=== PATIENT | male | born 1990 | race Caucasian/White ===

== ENCOUNTER 2018-10-08 07:16 | Emergency (ER) | payer SELFPAY ==
--- NOTE | 2018-10-08 08:03 | EDPHYS ---
Physician Documentation [facility] Name: Kun Head Jr Age: 28 yrs Sex: Male : 1990 Arrival Date: 10/08/2018 Time: 07:19 Bed 12 Private MD: None, None ED Physician Blair Li HPI: 10/08 07:45 This 28 yrs old Male presents to ER via Ambulatory with complaints of Flu ira Symptoms. 07:45 The patient or guardian reports cough, flu symptoms, arthralgias, low-grade fever, ira myalgias, no appetite. Onset: The symptoms/episode began/occurred 1 day(s) ago. Severity of symptoms: At their worst the symptoms were mild, in the emergency department the symptoms are unchanged. Modifying factors: The symptoms are alleviated by. The patient reports fever, that was measured at 101 degrees Fahrenheit. Modifying factors: there are no obvious modifying factors. Associated signs and symptoms: Pertinent positives: chills, cough, myalgias. Severity of symptoms: At their worst the symptoms were mild in the emergency department the symptoms are unchanged. Historical: - Allergies: 07:22 No Known Allergies; sv - PMHx: 07:22 None; sv - PSHx: 07:22 RIGHT knee; sv - Immunization history:: Adult Immunizations up to date. - Social history:: Smoking status: Patient/guardian denies using tobacco. - Ebola Screening: : No symptoms or risks identified at this time. - Family history:: not pertinent. ROS: 07:45 Constitutional: Negative for fever, chills, and weight loss, Eyes: Negative for injury, ira pain, redness, and discharge, ENT: Negative for injury, pain, and discharge, Neck: Negative for injury, pain, and swelling, Cardiovascular: Negative for chest pain, palpitations, and edema, Abdomen/GI: Negative for abdominal pain, nausea, vomiting, diarrhea, and constipation, Back: Negative for injury and pain, : Negative for injury, bleeding, discharge, and swelling, MS/Extremity: Negative for injury and deformity, Skin: Negative for injury, rash, and discoloration, Neuro: Negative for headache, weakness, numbness, tingling, and seizure, Psych: Negative for depression, anxiety, suicide ideation, homicidal ideation, and hallucinations, Allergy/Immunology: Negative for hives, rash, and allergies, Endocrine: Negative for neck swelling, polydipsia, polyuria, polyphagia, and marked weight changes, Hematologic/Lymphatic: Negative for swollen nodes, abnormal bleeding, and unusual bruising. 07:45 Respiratory: Positive for cough, with no reported sputum. Exam: 07:45 Constitutional: This is a well developed, well nourished patient who is awake, alert, ira and in no acute distress. Head/Face: Normocephalic, atraumatic. Eyes: Pupils equal round and reactive to light, extra-ocular motions intact. Lids and lashes normal. Conjunctiva and sclera are non-icteric and not injected. Cornea within normal limits. Periorbital areas with no swelling, redness, or edema. ENT: Nares patent. No nasal discharge, no septal abnormalities noted. Tympanic membranes are normal and external auditory canals are clear. Oropharynx with no redness, swelling, or masses, exudates, or evidence of obstruction, uvula midline. Mucous membranes moist. Neck: Trachea midline, no thyromegaly or masses palpated, and no cervical lymphadenopathy. Supple, full range of motion without nuchal rigidity, or vertebral point tenderness. No Meningismus. Chest/axilla: Normal chest wall appearance and motion. Nontender with no deformity. No lesions are appreciated. Cardiovascular: Regular rate and rhythm with a normal S1 and S2. No gallops, murmurs, or rubs. Normal PMI, no JVD. No pulse deficits. Respiratory: Lungs have equal breath sounds bilaterally, clear to auscultation and percussion. No rales, rhonchi or wheezes noted. No increased work of breathing, no retractions or nasal flaring. Abdomen/GI: Soft, non-tender, with normal bowel sounds. No distension or tympany. No guarding or rebound. No evidence of tenderness throughout. Back: No spinal tenderness. No costovertebral tenderness. Full range of motion. Skin: Warm, dry with normal turgor. Normal color with no rashes, no lesions, and no evidence of cellulitis. MS/ Extremity: Pulses equal, no cyanosis. Neurovascular intact. Full, normal range of motion. Neuro: Awake and alert, GCS 15, oriented to person, place, time, and situation. Cranial nerves II-XII grossly intact. Motor strength 5/5 in all extremities. Sensory grossly intact. Cerebellar exam normal. Normal gait. Psych: Awake, alert, with orientation to person, place and time. Behavior, mood, and affect are within normal limits. Vital Signs: 07:22 BP 112 / 74; Pulse 76; Resp 18; Temp 98; Pulse Ox 99% ; Weight 95.25 kg; Height 6 ft. 0 sv in. (182.88 cm); Pain 6/10; 07:22 Body Mass Index 28.48 (95.25 kg, 182.88 cm) sv MDM: 07:25 Patient medically screened. [facility] 07:47 Data reviewed: vital signs, nurses notes, lab test result(s), Flu:. [facility] 10/08 07:24 Order name: Flu; Complete Time: 07:59 10/08 07:24 Order name: Strep; Complete Time: 07:59 10/08 07:44 Order name: Throat Culture EDMS Administered Medications: 08:17 Drug: Tamiflu 75 mg Route: PO; 08:17 Follow up: Response: Medication administered at discharge. Disposition: 10/08/18 08:02 Discharged to Home. Impression: Malaise and fatigue, Fever, unspecified. - Condition is Stable. - Discharge Instructions: Fever, Adult, Weakness, Weakness, [id number], Fever, Adult, [id number]. - Prescriptions for Zithromax Z- Byron 250 mg Oral Tablet - take 1 tablet by ORAL route as directed for 5 days Day 1 - take two (2) tablets one time. Day 2, 3, 4 , 5 take one (1) tablet once daily.; 6 tablet. Tamiflu 75 mg Oral Capsule - take 1 tablet by ORAL route every 12 hours for 5 days; 10 tablet. - Medication Reconciliation Form, Thank You Letter, Antibiotic Education, Prescription Opioid Use, Work release form form. - Follow up: Private Physician; When: 2 - 3 days; Reason: Recheck today's complaints, Continuance of care, Re-evaluation by your physician. - Problem is new. - Symptoms have improved. Signatures: Dispatcher [employer] Bianca Breen RN RN Blair Li MD MD cha Smirch, Shelby, RN RN ss Corrections: (The following items were deleted from the chart) 08:18 08:02 10/08/2018 08:02 Discharged to Home. Impression: Malaise and fatigue; Fever, ss unspecified. Condition is Stable. Forms are Medication Reconciliation Form, Thank You Letter, Antibiotic Education, Prescription Opioid Use. Follow up: Private Physician; When: 2 - 3 days; Reason: Recheck today's complaints, Continuance of care, Re-evaluation by your physician. Problem is new. Symptoms have improved. ira
--- NOTE | 2018-10-08 08:03 | ER ---
Nurse's Notes [facility] Name: Kun Head Jr Age: 28 yrs Sex: Male : 1990 Arrival Date: 10/08/2018 Time: 07:19 Bed 12 Private MD: None, None Diagnosis: Malaise and fatigue;Fever, unspecified Presentation: 10/08 07:21 Presenting complaint: Patient states: exposed to the flu, c/o bodyaches, malaise, sv coughing, sinus congestion started last night. Transition of care: patient was not received from another setting of care. Onset of symptoms was October 07, 2018. Care prior to arrival: None. 07:21 Method Of Arrival: Ambulatory sv 07:21 Acuity: DEBO 4 sv 07:30 Initial Sepsis Screen: Does the patient meet any 2 criteria? No. Patient's initial sv sepsis screen is negative. Does the patient have a suspected source of infection? No. Patient's initial sepsis screen is negative. 07:30 Risk Assessment: Do you want to hurt yourself or someone else? Patient reports no sv desire to harm self or others. Triage Assessment: 07:21 General: Appears in no apparent distress. uncomfortable, well developed, Behavior is sv calm, cooperative, appropriate for age. Pain: Complains of pain in "all over" Pain currently is 6 out of 10 on a pain scale. Quality of pain is described as aching, Pain began 1 day ago. Is continuous. Neuro: Level of Consciousness is awake, alert, obeys commands, Oriented to person, place, time, situation, Gait is steady, Speech is normal. Respiratory: Reports cough that is non-productive, Respiratory effort is even, unlabored, Respiratory pattern is regular, symmetrical. Derm: Skin is pink, warm \\T\\ dry. Historical: - Allergies: 07:22 No Known Allergies; sv - PMHx: 07:22 None; sv - PSHx: 07:22 RIGHT knee; sv - Immunization history:: Adult Immunizations up to date. - Social history:: Smoking status: Patient/guardian denies using tobacco. - Ebola Screening: : No symptoms or risks identified at this time. - Family history:: not pertinent. Screenin:30 Abuse screen: Denies threats or abuse. Denies injuries from another. Nutritional sv screening: No deficits noted. Tuberculosis screening: No symptoms or risk factors identified. Fall Risk None identified. Assessment: 07:30 Reassessment: Patient appears in no apparent distress at this time. No changes from previously documented assessment. Patient and/or family updated on plan of care and expected duration. Pain level reassessed. Patient is alert, oriented x 3, equal unlabored respirations, skin warm/dry/pink. Vital Signs: 07:22 BP 112 / 74; Pulse 76; Resp 18; Temp 98; Pulse Ox 99% ; Weight 95.25 kg; Height 6 ft. 0 sv in. (182.88 cm); Pain 6/10; 07:22 Body Mass Index 28.48 (95.25 kg, 182.88 cm) sv ED Course: 07:19 Patient arrived in ED. mr 07:19 None, None is Private Physician. mr 07:22 Triage completed. sv 07:24 Arm band placed on. sv 07:25 Blair Li MD is Attending Physician. [facility] 07:30 Patient has correct armband on for positive identification. Call light in reach. Door sv closed. 07:31 Awaiting lab results, Awaiting ED provider evaluation. sv 08:11 No provider procedures requiring assistance completed. Patient did not have IV access ss during this emergency room visit. Administered Medications: 08:17 Drug: Tamiflu 75 mg Route: PO; ss 08:17 Follow up: Response: Medication administered at discharge. Outcome: 08:02 Discharge ordered by . [facility] 08:17 Discharged to home ambulatory. ss 08:17 Condition: good 08:17 Discharge instructions given to patient, family, Instructed on discharge instructions, follow up and referral plans. medication usage, Demonstrated understanding of instructions, follow-up care, medications, Prescriptions given X 2. 08:18 Patient left the ED. Signatures: Bianca Cohn, RN RN Blair Li MD MD cha Rivera, Mary mr Irene Casey RN RN ss Corrections: (The following items were deleted from the chart) 07:25 07:22 Temp 98F; 95.25 kg; Height 6 ft. 0 in.; BMI: 28.4; Pain 6/10; sv sv
[2018-10-08] MEDS ORDERED: OSELTAMIVIR 75 MG CAP ONE (08:26)
== END 2018-10-08 08:18 | disposition home or self-care (01) ==
LOC: ER 07:16
DX: R50.9 Fever, unspecified (principal); R53.81 Other malaise; R53.83 Other fatigue
CPT/HCPCS: 87070; 87081; 87804; 99283

== ENCOUNTER 2019-04-12 08:28 | Emergency (ER) | payer OTHER ==
--- NOTE | 2019-04-12 08:49 | ER ---
Nurse's Notes [facility] Name: Kun Head Jr Age: 29 yrs Sex: Male : 1990 Arrival Date: 04/12/2019 Time: 08:33 Bed 13 Private MD: Diagnosis: Acute serous otitis media, left ear Presentation: 04/12 08:38 Presenting complaint: Patient states: left ear pain that began yesterday. Denies cough, aa5 denies sore throat. 08:38 Transition of care: patient was not received from another setting of care. Onset of aa5 symptoms was April 11, 2019. Risk Assessment: Do you want to hurt yourself or someone else? Patient reports no desire to harm self or others. Initial Sepsis Screen: Does the patient meet any 2 criteria? No. Patient's initial sepsis screen is negative. Does the patient have a suspected source of infection? No. Patient's initial sepsis screen is negative. Care prior to arrival: None. 08:38 Acuity: DEBO 5 aa5 08:38 Method Of Arrival: Ambulatory aa5 Historical: - Allergies: 08:38 No Known Allergies; aa5 - PMHx: 08:38 None; aa5 - PSHx: 08:38 RIGHT knee; aa5 - Immunization history:: Adult Immunizations. - Social history:: Patient/guardian denies using alcohol, street drugs, The patient lives with family, Smoking status: Patient/guardian denies using tobacco. - Ebola Screening: : No symptoms or risks identified at this time. - Family history:: not pertinent. Screenin:40 Abuse screen: Denies threats or abuse. Nutritional screening: No deficits noted. rb1 Tuberculosis screening: No symptoms or risk factors identified. Fall Risk None identified. Assessment: 08:40 General: Appears uncomfortable, Behavior is calm, appropriate for age, Denies fever. rb1 Pain: Complains of pain in left ear Pain currently is 9 out of 10 on a pain scale. Neuro: Level of Consciousness is awake, alert, obeys commands, Oriented to person, place, time, situation. Cardiovascular: Capillary refill < 3 seconds is brisk in bilateral fingers. Respiratory: Airway is patent Respiratory effort is even, unlabored, Respiratory pattern is regular, symmetrical. GI: No signs and/or symptoms were reported involving the gastrointestinal system. : No signs and/or symptoms were reported regarding the genitourinary system. EENT: Reports pain in left ear. Derm: Skin is pink, warm \T\ dry. Vital Signs: 08:39 BP 115 / 56; Pulse 72; Resp 18 S; Temp 97.9(O); Pulse Ox 97% on R/A; aa5 ED Course: 08:33 Patient arrived in ED. as 08:38 Arm band placed on Patient placed in an exam room, on a stretcher. aa5 08:40 Patient has correct armband on for positive identification. Bed in low position. Call rb1 light in reach. Side rails up X 1. Pulse ox on. NIBP on. 08:41 Deacon Bran LVN is Primary Nurse. em 08:44 Triage completed. aa5 08:45 Victor Manuel Mcpherson MD is Attending Physician. ma2 09:02 Jaimie Maynard, RN is Primary Nurse. rb1 09:02 No provider procedures requiring assistance completed. Patient did not have IV access rb1 during this emergency room visit. Administered Medications: No medications were administered Outcome: 08:48 Discharge ordered by . ma2 09:02 Discharged to home ambulatory, with significant other. rb1 09:02 Condition: stable 09:02 Discharge instructions given to patient, Instructed on discharge instructions, follow up and referral plans. medication usage, Demonstrated understanding of instructions, follow-up care, medications, Prescriptions given X 3. 09:02 Patient left the ED. [facility] Signatures: Deacon Bran LVN LVN em Martinez, Amelia as Calderon, Audri, RN RN [facility] Jaimie Maynard, ABBIE RN [facility] Victor Manuel Mcpherson MD MD [facility]
--- NOTE | 2019-04-12 08:49 | EDPHYS ---
Physician Documentation [facility] Name: Kun Head Jr Age: 29 yrs Sex: Male : 1990 Arrival Date: 04/12/2019 Time: 08:33 Bed 13 Private MD: ED Physician Victor Manuel Mcpherson HPI: 04/12 08:45 This 29 yrs old Male presents to ER via Ambulatory with complaints of Ear ma2 Pain. 08:45 The complaints affect the left ear. Onset: The symptoms/episode began/occurred ma2 gradually, 2 day(s) ago. Associated signs and symptoms: Pertinent positives: ear pain , Pertinent negatives: fever, nausea, sinus trouble, sore throat, tinnitus, vertigo, vomiting. Severity of symptoms: At their worst the symptoms were mild in the emergency department the symptoms are unchanged. The patient has not experienced similar symptoms in the past. Historical: - Allergies: 08:38 No Known Allergies; aa5 - PMHx: 08:38 None; aa5 - PSHx: 08:38 RIGHT knee; aa5 - Immunization history:: Adult Immunizations. - Social history:: Patient/guardian denies using alcohol, street drugs, The patient lives with family, Smoking status: Patient/guardian denies using tobacco. - Ebola Screening: : No symptoms or risks identified at this time. - Family history:: not pertinent. ROS: 08:45 Constitutional: Negative for fever, chills, and weight loss. ma2 08:45 All other systems are negative. Exam: 08:45 Constitutional: This is a well developed, well nourished patient who is awake, alert, ma2 and in no acute distress. ENT: left tm is red with edemetus ear cancal, right is wnl, otherwise Nares patent. No nasal discharge, no septal abnormalities noted. Oropharynx with no redness, swelling, or masses, exudates, or evidence of obstruction, uvula midline. Mucous membranes moist. Chest/axilla: Normal chest wall appearance and motion. Nontender with no deformity. No lesions are appreciated. Cardiovascular: Regular rate and rhythm with a normal S1 and S2. No gallops, murmurs, or rubs. Normal PMI, no JVD. No pulse deficits. Respiratory: Lungs have equal breath sounds bilaterally, clear to auscultation and percussion. No rales, rhonchi or wheezes noted. No increased work of breathing, no retractions or nasal flaring. Abdomen/GI: Soft, non-tender, with normal bowel sounds. No distension or tympany. No guarding or rebound. No evidence of tenderness throughout. Vital Signs: 08:39 BP 115 / 56; Pulse 72; Resp 18 S; Temp 97.9(O); Pulse Ox 97% on R/A; aa5 MDM: 08:45 Patient medically screened. ma2 08:45 Differential diagnosis: otitis media, otitis externa. Differential diagnosis: ruptured ma2 TM, foreign body. Data reviewed: vital signs, nurses notes. Counseling: I had a detailed discussion with the patient and/or guardian regarding: the historical points, exam findings, and any diagnostic results supporting the discharge/admit diagnosis, the presence of at least one elevated blood pressure reading (>120/80) during this emergency department visit, the need for outpatient follow up. Administered Medications: No medications were administered Disposition: 04/12/19 08:48 Discharged to Home. Impression: Acute serous otitis media, left ear. - Condition is Stable. - Discharge Instructions: Otitis Media, Adult. - Prescriptions for Augmentin XR 1,000- 62.5 mg Oral Tablet Sustained Release 12 hr - take 2 tablet by ORAL route every 12 hours for 10 days; 40 tablet. Tylenol- Codeine #3 300-30 mg Oral Tablet - take 2 tablet by ORAL route every 6 hours As needed; 30 tablet. Ciprodex 0.3- 0.1 % Otic Drops, Suspension - instill 4 drop by OTIC route every 12 hours for 7 days , for ears ONLY; 1 Container. - Medication Reconciliation Form, Thank You Letter, Antibiotic Education, Prescription Opioid Use form. - Follow up: Private Physician; When: Tomorrow; Reason: Continuance of care. Signatures: Blanquita Shah RN RN aa5 Jaimie Maynard RN RN rb1 Victor Manuel Mcpherson MD MD ma2 Corrections: (The following items were deleted from the chart) 09:02 08:48 04/12/2019 08:48 Discharged to Home. Impression: Acute serous otitis media, left rb1 ear. Condition is Stable. Forms are Medication Reconciliation Form, Thank You Letter, Antibiotic Education, Prescription Opioid Use. Follow up: Private Physician; When: Tomorrow; Reason: Continuance of care. ma2
[2019-04-12 09:07] VITALS: BP 115/56; TEMP 97.9; O2SAT 97
== END 2019-04-12 09:02 | disposition home or self-care (01) ==
LOC: ER 08:28
DX: H65.02 Acute serous otitis media, left ear (principal)
CPT/HCPCS: 99283

== ENCOUNTER 2019-04-13 20:16 | Inpatient (IN) | payer OTHER, SELFPAY ==
[2019-04-13] MEDS ORDERED: NA CHLORIDE 0.9% 3,000 ML ONE (21:27)
[2019-04-13] MEDS ORDERED: CLINDAMYCIN 600MG/D5W 600 MG/50 ML BAG IV ONE (21:39)
[2019-04-13 21:55] LABS: Absolute Lymphocytes (CBC) 1.3 K/uL (0.7-4.9); Basophils % 0.3 % (0-1.3); Hematocrit 43.1 % (39.6-49.0); Lymphocytes % 10.2 % (15.3-44.8); MPV 8.9 fL (7.6-11.3); RBC Red Blood Cell Count 4.64 M/uL (4.33-5.43)
[2019-04-13] MEDS ORDERED: FENTANYL CITR 100 MCG/2 ML ONE (22:10)
[2019-04-13 22:13] LABS: ALT/SGPT 71 U/L (12-78); AST/SGOT 27 U/L (15-37); Albumin 3.9 g/dL (3.4-5.0); Alkaline Phosphatase 107 U/L (45-117); BUN Blood Urea Nitrogen 10 mg/dL (7-18); Bicarbonate 27 mmol/L (21-32); Bilirubin Direct 0.3 mg/dL (0-0.2); Bilirubin Total 0.6 mg/dL (0.2-1.0); Creatine Phosphokinase 71 U/L (39-308); Glucose Level 94 mg/dL (74-106); Potassium 4.1 mmol/L (3.5-5.1); Protein, Total 7.8 g/dL (6.4-8.2); Sodium Level 139 mmol/L (136-145)
[2019-04-13] MEDS ORDERED: NA CHLORIDE 0.9% 250 ML ONE (22:13)
[2019-04-13] MEDS ORDERED: VANCOMYCIN 1 GM/VIAL ONE (22:13)
[2019-04-13] MEDS ORDERED: KETOROLAC 30 MG/ML INJ ONE (22:16)
--- NOTE | 2019-04-13 22:16 | ER ---
Nurse's Notes [facility] Name: Kun Head Jr Age: 29 yrs Sex: Male : 1990 Arrival Date: 04/13/2019 Time: 20:18 Bed 8 Private MD: Diagnosis: Otitis externa;Mastoiditis and related conditions Presentation: 04/13 20:48 Presenting complaint: Patient states: I have a left ear infection and was here la1 yesterday they put me on meds but my pain is worse. Transition of care: patient was not received from another setting of care. Onset of symptoms was April 13, 2019. Risk Assessment: Do you want to hurt yourself or someone else? Patient reports no desire to harm self or others. Initial Sepsis Screen: Does the patient meet any 2 criteria? No. Patient's initial sepsis screen is negative. Does the patient have a suspected source of infection? No. Patient's initial sepsis screen is negative. Care prior to arrival: None. 20:48 Method Of Arrival: Ambulatory la1 20:48 Acuity: DEBO 3 la1 Historical: - Allergies: 20:49 PENICILLINS; la1 - PMHx: 20:49 None; la1 - Immunization history:: Adult Immunizations up to date. - Social history:: Smoking status: Patient/guardian denies using tobacco. - Ebola Screening: : No symptoms or risks identified at this time. Screenin:55 Abuse screen: Denies threats or abuse. Nutritional screening: No deficits noted. la1 Tuberculosis screening: No symptoms or risk factors identified. Fall Risk None identified. Assessment: 20:53 General: Appears in no apparent distress. Behavior is calm, cooperative. Pain: la1 Complains of pain in left ear. Neuro: Level of Consciousness is awake, alert, obeys commands. Cardiovascular: Patient's skin is warm and dry. Respiratory: Airway is patent Respiratory effort is even, unlabored. GI: No signs and/or symptoms were reported involving the gastrointestinal system. : No signs and/or symptoms were reported regarding the genitourinary system. EENT: Ear canal w/ drainage noted from left ear. 22:09 Reassessment: Dr. Nicholas at the bedside. ak1 22:18 Reassessment: Patient appears in no apparent distress at this time. Patient and/or ak1 family updated on plan of care and expected duration. Pain level reassessed. Patient is alert, oriented x 3, equal unlabored respirations, skin warm/dry/pink. Patient states feeling better. 22:40 Reassessment: Patient appears in no apparent distress at this time. Patient is alert, rr5 oriented x 3, equal unlabored respirations, skin warm/dry/pink. Patient states feeling better. Patient states symptoms have improved. Pain: Pain currently is 5 out of 10 on a pain scale. Vital Signs: 20:49 BP 137 / 80; Pulse 100; Resp 16; Temp 97.4; Pulse Ox 100% on R/A; Weight 99.79 kg; la1 Height 6 ft. 0 in. (182.88 cm); 22:40 BP 128 / 83; Pulse 88; Resp 19; Pulse Ox 98% ; Pain 5/10; rr5 23:30 BP 132 / 84; Pulse 85; Resp 16; Pulse Ox 98% ; rr5 20:49 Body Mass Index 29.84 (99.79 kg, 182.88 cm) la1 ED Course: 20:18 Patient arrived in ED. ds1 20:49 Triage completed. la1 20:49 Arm band placed on left wrist. la1 20:52 Samantha Johnson FNP-C is [facility]. snw 20:52 Dev Felix MD is Attending Physician. snw 20:53 Neo Nunez, ABBIE is Primary Nurse. la1 20:55 Patient has correct armband on for positive identification. la1 21:48 CT completed. Patient tolerated procedure well. Patient moved back from CT. bq 21:55 Inserted saline lock: 20 gauge in right antecubital area, using aseptic technique. oe Blood collected. 22:02 CT Soft Tissue Neck W/contr In Process Unspecified. EDMS 22:12 Paul Nicholas DO is Hospitalizing Provider. snw 23:07 No provider procedures requiring assistance completed. Patient admitted, IV remains in ak1 place. Administered Medications: 21:54 Drug: NS 0.9% (30 ml/kg) 30 ml/kg Route: IV; Rate: bolus; Site: right antecubital; ak1 23:06 Follow up: IV Status: Infusion continued upon admission ak1 21:54 Drug: Clindamycin 600 mg Route: IVPB; Infused Over: 30 mins; Site: right antecubital; ak1 22:18 Follow up: IV Status: Completed infusion ak1 22:14 Drug: fentaNYL (PF) 50 mcg {Note: rass 0.} Route: IVP; Site: right antecubital; rr5 22:18 Follow up: Response: No adverse reaction; Pain is decreased; RASS: Drowsy (-1) ak1 22:18 Drug: vancoMYCIN 1 grams Route: IVPB; Infused Over: 2 hrs; Site: right antecubital; ak1 23:06 Follow up: IV Status: Infusion continued upon admission ak1 22:20 Drug: TORadol 30 mg Route: IVP; Site: right antecubital; rr5 23:06 Follow up: Response: No adverse reaction ak1 Point of Care Testing: Blood Glucose: 21:54 Blood Glucose: 98 mg/dL; ak1 Ranges: Intake: 19:40 IV: 100ml; Total: 100ml. rr5 Outcome: 22:13 Decision to Hospitalize by Provider. snw 23:07 Admitted to Med/surg accompanied by tech, via wheelchair, room 405, with chart. ak1 23:07 Condition: stable 23:07 Instructed on the need for admit. 23:31 Patient left the ED. rr5 Signatures: Dispatcher [employer] EDMS Samantha Johnson, METEOROLOGICAL TECHNICIAN-C METEOROLOGICAL TECHNICIAN-Teresa Saldaña Demi ds1 Neo Nunez, RN RN la1 Olya Mckeon RN RN ak1 Boni Guzmán Raymond, RN RN rr5 Corrections: (The following items were deleted from the chart) 20:49 20:48 Acuity: DEBO 3 la1 la1 21:14 20:48 Acuity: DEBO 5 la1 la1
--- NOTE | 2019-04-13 22:17 | EDPHYS ---
Physician Documentation [facility] Name: Kun Head Jr Age: 29 yrs Sex: Male : 1990 Arrival Date: 04/13/2019 Time: 20:18 Bed 8 Private MD: ED Physician Dev Felix HPI: 04/13 21:32 This 29 yrs old Male presents to ER via Ambulatory with complaints of Ear snw Pain. 21:32 The patient presents with drainage, a fullness, pain, swelling, tenderness. The snw complaints affect the left ear. Onset: The symptoms/episode began/occurred gradually, 2 day(s) ago, and became worse yesterday. Associated signs and symptoms: Pertinent positives: severe pain, swelling, "knots" in neck. Severity of symptoms: At their worst the symptoms were moderate. The patient has not experienced similar symptoms in the past. The patient has been recently seen by a physician: The patient has been recently seen at the [facility] Emergency Department, yesterday, dx with OE, given antibiotic drops/ear wick and oral antibiotics. Historical: - Allergies: 20:49 PENICILLINS; la1 - PMHx: 20:49 None; la1 - Immunization history:: Adult Immunizations up to date. - Social history:: Smoking status: Patient/guardian denies using tobacco. - Ebola Screening: : No symptoms or risks identified at this time. ROS: 21:24 Constitutional: Negative for fever, chills, and weight loss, Eyes: Negative for injury, snw pain, redness, and discharge, Neck: Negative for injury, pain, and swelling, Cardiovascular: Negative for chest pain, palpitations, and edema, Respiratory: Negative for shortness of breath, cough, wheezing, and pleuritic chest pain, Abdomen/GI: Negative for abdominal pain, nausea, vomiting, diarrhea, and constipation, Back: Negative for injury and pain, : Negative for injury, bleeding, discharge, and swelling, MS/Extremity: Negative for injury and deformity, Skin: Negative for injury, rash, and discoloration, Neuro: Negative for headache, weakness, numbness, tingling, and seizure, Psych: Negative for depression, anxiety, suicide ideation, homicidal ideation, and hallucinations. 21:24 ENT: Positive for ear pain, neck pain. Exam: 21:15 Constitutional: This is a well developed, well nourished patient who is awake, alert, snw and in no acute distress. Eyes: Pupils equal round and reactive to light, extra-ocular motions intact. Lids and lashes normal. Conjunctiva and sclera are non-icteric and not injected. Cornea within normal limits. Periorbital areas with no swelling, redness, or edema. Neck: Trachea midline, no thyromegaly or masses palpated, and no cervical lymphadenopathy. Supple, full range of motion without nuchal rigidity, or vertebral point tenderness. No Meningismus. Chest/axilla: Normal chest wall appearance and motion. Nontender with no deformity. No lesions are appreciated. Cardiovascular: Regular rate and rhythm with a normal S1 and S2. No gallops, murmurs, or rubs. Normal PMI, no JVD. No pulse deficits. Respiratory: Lungs have equal breath sounds bilaterally, clear to auscultation and percussion. No rales, rhonchi or wheezes noted. No increased work of breathing, no retractions or nasal flaring. Abdomen/GI: Soft, non-tender, with normal bowel sounds. No distension or tympany. No guarding or rebound. No evidence of tenderness throughout. Back: No spinal tenderness. No costovertebral tenderness. Full range of motion. Skin: Warm, dry with normal turgor. Normal color with no rashes, no lesions, and no evidence of cellulitis. MS/ Extremity: Pulses equal, no cyanosis. Neurovascular intact. Full, normal range of motion. Neuro: Awake and alert, GCS 15, oriented to person, place, time, and situation. Cranial nerves II-XII grossly intact. Motor strength 5/5 in all extremities. Sensory grossly intact. Cerebellar exam normal. Normal gait. 21:15 Head/face: Noted is swelling, that is moderate, that is severe, of the left ear. 21:15 ENT: External ear(s): pain with movement, swelling, of the pinna of left ear and left ear canal, TM's: not visable, because of discharge, Nose: is normal, Mouth: is normal, Posterior pharynx: is normal, Dental exam: normal, Voice: is normal, mild trismus second to pain, + mastoid tenderness. Vital Signs: 20:49 BP 137 / 80; Pulse 100; Resp 16; Temp 97.4; Pulse Ox 100% on R/A; Weight 99.79 kg; la1 Height 6 ft. 0 in. (182.88 cm); 22:40 BP 128 / 83; Pulse 88; Resp 19; Pulse Ox 98% ; Pain 5/10; rr5 23:30 BP 132 / 84; Pulse 85; Resp 16; Pulse Ox 98% ; rr5 20:49 Body Mass Index 29.84 (99.79 kg, 182.88 cm) la1 MDM: 21:04 Patient medically screened. snw 21:59 Data reviewed: vital signs, nurses notes. Data interpreted: Pulse oximetry: on room air snw is 100 %. Interpretation: normal. Physician consultation: Paul Nicholas DO was called at 22:00, was contacted at 22:00, regarding admission, to the medical/surgical unit. in the emergency department to see patient at 22:00. 22:05 Transition of care: After a detail discussion of the patient's case, care is snw transferred to Dev Felix MD. 04/13 21:23 Order name: Sed Rate snw 04/13 21:23 Order name: Basic Metabolic Panel snw 04/13 21:23 Order name: Blood Culture Adult (2) snw 04/13 21:23 Order name: CBC with Diff snw 04/13 21:23 Order name: CPK snw 04/13 21:23 Order name: Lactate sn 04/13 21:23 Order name: LFT's sn 04/13 21:23 Order name: Procalcitonin [facility] 04/13 21:23 Order name: CT Soft Tissue Neck W/contr snw 04/13 21:56 Order name: Glucose, Ancillary Testing; Complete Time: 21:59 EDMS 04/13 23:26 Order name: Blood Culture EDMS 04/13 21:23 Order name: Accucheck; Complete Time: 21:54 snw 04/13 21:23 Order name: Cardiac monitoring; Complete Time: 21:35 snw 04/13 21:23 Order name: EKG - Nurse/Tech; Complete Time: 21:35 snw 04/13 21:23 Order name: Labs collected and sent; Complete Time: 21:47 snw Administered Medications: 21:54 Drug: NS 0.9% (30 ml/kg) 30 ml/kg Route: IV; Rate: bolus; Site: right antecubital; ak1 23:06 Follow up: IV Status: Infusion continued upon admission ak1 21:54 Drug: Clindamycin 600 mg Route: IVPB; Infused Over: 30 mins; Site: right antecubital; ak1 22:18 Follow up: IV Status: Completed infusion ak1 22:14 Drug: fentaNYL (PF) 50 mcg {Note: rass 0.} Route: IVP; Site: right antecubital; rr5 22:18 Follow up: Response: No adverse reaction; Pain is decreased; RASS: Drowsy (-1) ak1 22:18 Drug: vancoMYCIN 1 grams Route: IVPB; Infused Over: 2 hrs; Site: right antecubital; ak1 23:06 Follow up: IV Status: Infusion continued upon admission ak1 22:20 Drug: TORadol 30 mg Route: IVP; Site: right antecubital; rr5 23:06 Follow up: Response: No adverse reaction ak1 Point of Care Testing: Blood Glucose: 21:54 Blood Glucose: 98 mg/dL; ak1 Ranges: Critical Glucose Levels:Adult <50 mg/dl or >400 mg/dl <40 mg/dl or >180 mg/dl Disposition: 04/14 06:05 Co-signature as Attending Physician, Dev Felix MD I agree with the assessment and tw4 plan of care. Disposition: 04/13/19 22:13 Hospitalization ordered by Paul Nicholas for Observation. Preliminary diagnosis are Otitis externa, Mastoiditis and related conditions. - Bed requested for Telemetry/MedSurg (observation). - Status is Observation. rr5 - Condition is Stable. - Problem is new. - Symptoms have worsened. UTI on Admission? No Signatures: Dispatcher [employer] EDMS Samantha Johnson, GEM-C FISH LIVER SORTER-Csnw Neo Nunez, RN RN Olya Vaughan RN RN digna1 Shira Moon RN RN cg Wadley, Terrence, MD MD tw4 Felipe Houser RN RN rr5 Corrections: (The following items were deleted from the chart) 04/13 23:04 22:13 Hospitalization Ordered by Paul Nicholas DO for Observation. Preliminary cg diagnosis is Otitis externa; Mastoiditis and related conditions. Bed requested for Telemetry/MedSurg (observation). Status is Observation. Condition is Stable. Problem is new. Symptoms have worsened. UTI on Admission? No. snw 23:31 23:04 04/13/2019 22:13 Hospitalization Ordered by Paul Nicholas DO for Observation. rr5 Preliminary diagnosis is Otitis externa; Mastoiditis and related conditions. Bed requested for Telemetry/MedSurg (observation). Status is Observation. Condition is Stable. Problem is new. Symptoms have worsened. UTI on Admission? No. cg
--- NOTE | 2019-04-13 23:04 | P.HP ---
Certification for Inpatient Patient admitted to: Observation With expected LOS: <2 Midnights Patient will require the following post-hospital care: None Practitioner: I am a practitioner with admitting privileges, knowledge of patient current condition, hospital course, and medical plan of care. Services: Services provided to patient in accordance with Admission requirements found in Title 42 Section 412.3 of the Code of Federal Regulations Patient History Date of Service: 04/13/19 Primary Care Provider: none Reason for admission: Left ear pain and drainage History of Present Illness: 29-year-old male presented to the emergency room with worsening left ear pain and swelling. Patient had reported increased swelling and pain to the left ear. He had some difficulty hearing over the past week. He denied any significant fever, chills. Pain worsened over time. Patient was seen yesterday in the emergency room. He was diagnosed with left otitis media and externa. He was given antibiotic therapy and sent home. Overnight pain to the left ear has worsened. He start to notice increased swelling to the left external ER can now. He also reported swelling to that left facial region and lymph nodes to the neck on the left side. He came to the ER for further evaluation. In the ER patient evaluated. Vital signs stable. Hemoglobin 14.5, white count 13.2. Percent neutrophils elevated at 82. Sed rate elevated at 25. Lactic acid and pro calcitonin within normal range. Sodium 139, potassium 4.1, BUN of 10, creatinine 0.96 with a GFR greater than 90. Glucose 94. CT head showed severe otitis externa and media. Very small left mastoid effusion noted. Multiple large anterior and posterior cervical lymph nodes noted. Patient was given IV antibiotic therapy. Patient was admitted for further evaluation and treatment. When I saw the patient in the ER, patient still had pain to the left ear. Swelling and adenopathy noted. Patient denies any recent injury. He does not use any err Plavix. He does work and a loud environmental. 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 Over the last year he has been having mild hearing loss. He reports that this past February he went on vacation and did a lot of water activities. He does shower and use the tub. He reports using cue tips weekly. Allergies No Known Drug Allergies Allergy (Unverified 11/08/14 21:33) Unknown No Known Allergies Allergy (Uncoded 12/14/15 13:42) Unknown Home medications list reviewed: No - Past Medical/Surgical History Diabetic: No -: Former smoker -: Skin graft Psychosocial/ Personal History: Patient is . He has 1 child. 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 - Family History Family History: Reviewed- Non-Contributory - Social History Smoking Status: Former smoker Counseled patient to stop smoking for: less than 10 minutes Smoking therapy provided: Yes Patient receptive to therapy: Yes Alcohol use: Yes CD- Drugs: No Caffeine use: Yes Place of Residence: Home Review of Systems General: As per HPI Eyes: As per HPI ENT: Ear Pain, Ear Discharge, As per HPI Respiratory: Unremarkable Cardiovascular: Unremarkable Gastrointestinal: Unremarkable Genitourinary: Unremarkable Musculoskeletal: Unremarkable Integumentary: Unremarkable Neurological: Unremarkable Lymphatics: Enlarged lymph nodes Physical Examination - Physical Exam General: Alert, In no apparent distress, Oriented x3, Cooperative HEENT: Atraumatic, Normocephalic, Other (Swelling noted to the left ear. Not able to visualize tympanic membrane as the left ear can now is swollen. Pain with palpation to the ear noted. Significant adenopathy noted to the posterior and anterior cervical lymph nodes. Adenopathy noted to the posterior and anterior auricular lymph nodes) Neck: Supple, No Thyromegaly Respiratory: Clear to auscultation bilaterally, Normal air movement Cardiovascular: Normal pulses, Regular rate/rhythm Gastrointestinal: Normal bowel sounds, Soft and benign, Non-distended, No ascites, No tenderness, No masses, No rebound, No guarding Musculoskeletal: No contractures, No erythema, No tenderness, No warmth Integumentary: No erythema, No warmth, No cyanosis, Tenderness/swelling (As above) Neurological: Normal speech, Normal strength at 5/5 x4 extr, Normal tone, Normal affect Lymphatics: Other (As above) - Studies Laboratory Data (last 24 hrs) 04/13/19 21:40: Sodium 139, Potassium 4.1, BUN 10, Creatinine 0.96, Glucose 94, Total Bilirubin 0.6, AST 27, ALT 71, Alkaline Phosphatase 107 04/13/19 21:40: WBC 13.2 H, Hgb 14.5, Hct 43.1, Plt Count 222 Assessment and Plan - Plan Impression: Severe otitis media and externa, failed outpatient therapy complicated with very small left mastoid effusion Enlarged cervical and auricular chain lymphadenopathy Bifrontal sinusitis likely chronic Former tobacco use Plan: Severe otitis media and externa, failed outpatient therapy complicated with very small left mastoid effusion: Patient will be admitted for further evaluation and treatment. Will start IV antibiotic therapy-vancomycin and cefepime. Blood cultures obtained. Will also obtain culture from the ear. CT scan reviewed. ENT consulted to further evaluate. Will keep the patient NPO as the patient may require surgical intervention. Will provide DVT prophylaxis- Lovenox. Will provide pain medication. Await further recommendations from ENT. Daytime hospitalist will continue his care. Likely discharge in the next 48 hours pending clinical improvement and ENT recommendation. Enlarged cervical and auricular chain lymphadenopathy: Related to above. Continue with IV antibiotic therapy. Will monitor closely. Bifrontal sinusitis likely chronic: Will provide Flonase 1 spray per nostril twice daily. Former tobacco use: Patient has quit. Will provide nicotine patch as needed. Discharge Plan: Home Plan to discharge in: 48 Hours - Advance Directives Does patient have a Living Will: No Does patient have a Durable POA for Healthcare: No - Code Status/Comfort Care Code Status Assessed: Yes (Patient is full code) Time Spent Managing Pts Care (In Minutes): 55
[2019-04-13] MEDS ORDERED: ONDANSETRON 4 MG/2 ML VIAL IV PRN (23:20)
[2019-04-14 00:06] VITALS: BMI 30.5
[2019-04-14] MEDS: HYDROCODONE/APAP 7.5/325 MG TAB PO PRN ×4 (00:40→19:03)
[2019-04-14] MEDS: TRAMADOL HCL 50 MG TAB PO PRN ×3 (02:35→18:27)
[2019-04-14 02:53] LABS: Urine Appearance CLEAR; Urine Bilirubin NEGATIVE (NEG); Urine Blood NEGATIVE (NEG); Urine Color YELLOW; Urine Glucose NEGATIVE (NEG); Urine Protein NEGATIVE (NEG); Urine Specific Gravity 1.015 (1.005-1.030)
[2019-04-14 03:04] LABS: Urine Microscopic Reflex NO UMIC
[2019-04-14] MEDS: ACETAMINOPHEN 500 MG TAB PO PRN ×2 (04:12→20:48)
[2019-04-14 04:14] LABS: Absolute Lymphocytes (CBC) 1.8 K/uL (0.7-4.9); Basophils % 0.4 % (0-1.3); Hematocrit 38.4 % (39.6-49.0); Lymphocytes % 14.9 % (15.3-44.8); MPV 8.7 fL (7.6-11.3); RBC Red Blood Cell Count 4.25 M/uL (4.33-5.43)
[2019-04-14 04:23] LABS: Magnesium 1.9 mg/dL (1.8-2.4); Potassium 4.5 mmol/L (3.5-5.1)
[2019-04-14] MEDS: KETOROLAC 30 MG/ML INJ IV PRN ×3 (05:55→23:14)
--- NOTE | 2019-04-14 08:31 | RAD REPORT ---
EXAM DESCRIPTION: CT - Iac Wo Con W/ Mpr - 04/14/2019 7:33 am CLINICAL HISTORY: CT temporal bones to r/o mastoiditis w/o cont Left ear pain COMPARISON: Soft Tissue Neck W/Contr dated 04/13/2019 TECHNIQUE: The temporal bones were scanned in the direct axial plane using high resolution thin slic es without contrast. Coronal and sagittal reformatted images were obtained and reviewed. All CT scans are performed using dose optimization technique as appropriate and may include automated exposure control or mA/KV adjustment according to patient size. FINDINGS: There is significant thickening involving the left external auditory canal and periarticular tissues. Opacification of the middle ear structures are present. Small amount of fluid is seen in the left ma stoid air cell. No ossicular erosion seen. No bony destructive changes. The skull base appears intact. Mild fluid is seen in ethmoid air cells. The right temporal bone struc tures appear normal. IMPRESSION: Moderately severe left-sided otomastoiditis findings. No ossicular erosion or bone destr uction.
[2019-04-14] MEDS ORDERED: ENOXAPARIN 40 MG/0.4 ML SQ SCH (09:00)
[2019-04-14] MEDS: NICOTINE 21 MG/PAT TD SCH (09:00)
[2019-04-14] MEDS ORDERED: CEFEPIME 1 GM/VIAL IV SCH (09:00)
--- NOTE | 2019-04-14 09:44 | RAD REPORT ---
EXAM DESCRIPTION: Soft Tissue Neck W/Contr CLINICAL HISTORY: 29 years Male, mastoiditis;Facial pain COMPARISON: None. TECHNIQUE: 3 mm axial images of the neck were obtained with IV contrast. Coronal and sagittal reformatted images were obtained. This exam was performed according to our departmental dose-optimization program, which includes autom ated exposure control, adjustment of the mA and/or kV according to patient size and/or use of iterati ve reconstruction technique. FINDINGS: PARANASAL SINUSES: Moderately severe mucosal thickening within the frontal sinus recesses bilaterally. MASTOID AIR CELLS: There is a small effusion within the left mastoid air cells. There is evidence of severe left-sided otitis media There is severe soft tissue thickening about the left external auditory canal and the periauricular t issues. SOFT TISSUES: There are enlarged lymph nodes in the left anterior posterior cervical chain which are likely reactiv e to the above findings. Largest lymph node measures 1.6 x 0.9 cm. The parotid glands and submandibular glands are unremarkable The thyroid gland is unremarkable.. The epiglottis is unremarkable. PYriform sinuses are unremarkable. The vallecula is unremarkable IMPRESSION: 1. Severe left-sided otitis externa and otitis media. 2. Very small left mastoid effusion. 3. Enlarged anterior and posterior cervical lymph nodes on the left. 4. Mild bifrontal paranasal sinusitis. Electronically signed by: Jacky Vaughn MD 04/13/2019 10:20 PM CDT Due to temporary technical issues with the PACS/Fluency reporting system, reports are being signed by the in house radiologist as a courtesy to ensure prompt reporting. The interpreting radiologist is f ully responsible for the content of the report.
[2019-04-14] MEDS: FLUTICASONE 50MCG NASAL SPRAY NAS SCH ×2 (09:54→20:49)
[2019-04-14] MEDS: CEFEPIME/SWI 1gm 10 ML IV SCH ×2 (09:56→20:48)
--- NOTE | 2019-04-14 12:11 | P.PN ---
Subjective Date of Service: 04/14/19 Primary Care Provider: none Chief Complaint: Left ear pain and drainage Patient seen and examined at bedside with RN. Chart reviewed. Case discussed with ENT. Currently patient had a CT facial bones done which was consistent with otomastoditis. Will follow up with ENT regarding further plan. Review of Systems 10-point ROS is otherwise unremarkable Physical Examination - Vital Signs Temperature: 98.3 F Blood Pressure: 120/66 Pulse: 83 Respirations: 18 Pulse Ox (%): 98 - Physical Exam General: Alert, In no apparent distress HEENT: Atraumatic, PERRLA, Other (Left ear with swelling and redness on the outside. Post auricular lymph nodes enlarged. Care exam consistent with otitis media with effusion collection.) Neck: Supple, JVD not distended Respiratory: Clear to auscultation bilaterally, Normal air movement Cardiovascular: Regular rate/rhythm, Normal S1 S2 Gastrointestinal: Normal bowel sounds, No tenderness Musculoskeletal: No tenderness Integumentary: No rashes Neurological: Normal speech, Normal tone, Normal affect Lymphatics: No axilla or inguinal lymphadenopathy - Studies Laboratory Data (last 24 hrs) 04/13/19 21:40: Sodium 139, Potassium 4.1, BUN 10, Creatinine 0.96, Glucose 94, Total Bilirubin 0.6, AST 27, ALT 71, Alkaline Phosphatase 107 04/13/19 21:40: WBC 13.2 H, Hgb 14.5, Hct 43.1, Plt Count 222 Medications List Reviewed: Yes Assessment And Plan - Current Problems (Diagnosis) (1) Mastoiditis Current Visit: Yes Status: Acute Plan: CT facial consistent with Otomatoiditis -currently on IV Maxipime and vancomycin(given the recent infection with Staph aureus) -ENT consulted on the case. Appreciated recommendations at this time -will continue with IV antibiotics and follow up with ENT recommendations may require surgical debridement -cultures collected as well Qualifiers: Laterality: left Qualified Code(s): H70.92 - Unspecified mastoiditis, left ear (2) Otitis media Current Visit: Yes Status: Acute Plan: Severe otitis media and externa to the left ear with Mastoid Effusion and auricular lymph nodes enlargement -ENT consulted. Recommendations appreciated -Failed outpt therapy -also on ear drops at this time Ciprodex -will continue to monitor closely for any signs and symptoms of sepsis Qualifiers: Otitis media type: suppurative Chronicity: acute Laterality: left Recurrence: non-recurrent Spontaneous tympanic membrane rupture: without spontaneous rupture Qualified Code(s): H66.002 - Acute suppurative otitis media without spontaneous rupture of ear drum, left ear - Plan Pending clinical improvement at this time. Will continue to monitor patient here closely Discharge Plan: Home Plan to discharge in: Greater than 2 days - Code Status/Comfort Care Code Status Assessed: Yes Critical Care: No
[2019-04-14] MEDS: VANCOMYCIN 2 GM in NA CHLORIDE 0.9% 500 ML IVPB SCH ×2 (12:40→23:17)
[2019-04-14] MEDS: NEOMY/POLY/HC 1% OTIC DROPS OTIC SCH ×3 (12:45→20:49)
--- NOTE | 2019-04-14 13:37 | EKG ---
Test Date: 2019-04-13 Test Time: 21:31:52 Travel Pt: VICENTE MEASUREMENT RESULTS: Intervals: Rate: 82 TX: 142 QRSD: 84 QT: 356 QTc: 415 [place]: P: 52 TX: 142 QRS: 32 T: 18 INTERPRETIVE STATEMENTS: Normal sinus rhythm Septal infarct, age undetermined Abnormal ECG Compared to ECG 04/11/2016 01:49:33 Myocardial infarct finding now present Electronically Signed On 04-14-19 13:37:09 CDT by Fernando Cooper
[2019-04-15] MEDS: HYDROCODONE/APAP 7.5/325 MG TAB PO PRN ×4 (02:28→23:39)
[2019-04-15 04:37] LABS: Absolute Lymphocytes (CBC) 2.3 K/uL (0.7-4.9); Basophils % 0.3 % (0-1.3); Hematocrit 37.6 % (39.6-49.0); Lymphocytes % 23.2 % (15.3-44.8); MPV 8.9 fL (7.6-11.3); RBC Red Blood Cell Count 4.17 M/uL (4.33-5.43)
[2019-04-15 04:43] LABS: BUN Blood Urea Nitrogen 10 mg/dL (7-18); Bicarbonate 28 mmol/L (21-32); Glucose Level 83 mg/dL (74-106); Magnesium 1.9 mg/dL (1.8-2.4); Potassium 4.2 mmol/L (3.5-5.1); Sodium Level 140 mmol/L (136-145)
[2019-04-15] MEDS: TRAMADOL HCL 50 MG TAB PO PRN ×3 (04:47→21:18)
[2019-04-15] MEDS: KETOROLAC 30 MG/ML INJ IV PRN ×2 (06:46→15:36)
[2019-04-15] MEDS: NICOTINE 21 MG/PAT TD SCH (09:00)
[2019-04-15] MEDS: FLUTICASONE 50MCG NASAL SPRAY NAS SCH ×2 (09:41→21:19)
[2019-04-15] MEDS: NEOMY/POLY/HC 1% OTIC DROPS OTIC SCH ×2 (09:41→13:03)
[2019-04-15] MEDS: CEFEPIME/SWI 1gm 10 ML IV SCH ×2 (09:47→21:20)
--- NOTE | 2019-04-15 12:27 | P.PN ---
Subjective Date of Service: 04/15/19 Primary Care Provider: none Chief Complaint: Left ear pain and drainage Patient seen and examined at bedside with RN. Chart reviewed. Case discussed with ENT. This AM feeling a little bit better. ENT to put a wick in the Ear. WIll start on IV steriods Review of Systems 10-point ROS is otherwise unremarkable Physical Examination - Vital Signs Temperature: 97.6 F Blood Pressure: 114/68 Pulse: 65 Respirations: 16 Pulse Ox (%): 96 - Physical Exam General: Alert, In no apparent distress HEENT: EOMI (Ear and Ear lobe swelling improved ) Neck: Supple, JVD not distended Respiratory: Clear to auscultation bilaterally, Normal air movement Cardiovascular: Regular rate/rhythm, Normal S1 S2 Gastrointestinal: Normal bowel sounds, No tenderness Musculoskeletal: No tenderness Integumentary: No rashes Neurological: Normal speech, Normal tone, Normal affect Lymphatics: No axilla or inguinal lymphadenopathy - Studies Microbiology Data (last 24 hrs): 04/14/19 02:05 Other - Left Ear Gram Stain - Final Medications List Reviewed: Yes Assessment And Plan - Current Problems (Diagnosis) (1) Mastoiditis Current Visit: Yes Status: Acute Plan: CT facial consistent with Otomatoiditis -currently on IV Maxipime and vancomycin(given the recent infection with Staph aureus) -ENT consulted on the case. Appreciated recommendations at this time -will continue with IV antibiotics and Otic ggt with IV decadron -cultures collected. Pending Qualifiers: Laterality: left Qualified Code(s): H70.92 - Unspecified mastoiditis, left ear (2) Otitis media Current Visit: Yes Status: Acute Plan: Severe otitis media and externa to the left ear with Mastoid Effusion and auricular lymph nodes enlargement -ENT consulted. Recommendations appreciated -Failed outpt therapy -also on ear drops at this time Ciprodex -will continue to monitor closely for any signs and symptoms of sepsis Qualifiers: Otitis media type: suppurative Chronicity: acute Laterality: left Recurrence: non-recurrent Spontaneous tympanic membrane rupture: without spontaneous rupture Qualified Code(s): H66.002 - Acute suppurative otitis media without spontaneous rupture of ear drum, left ear - Plan Pending clinical improvement at this time. Will continue to monitor patient here closely Discharge Plan: Home Plan to discharge in: 48 Hours - Code Status/Comfort Care Code Status Assessed: Yes Critical Care: No
[2019-04-15] MEDS: VANCOMYCIN 2 GM in NA CHLORIDE 0.9% 500 ML IVPB SCH ×2 (13:01→23:51)
[2019-04-15] MEDS ORDERED: dexAMETHasone 10 MG/ML VIAL IV ONE (13:27)
[2019-04-15] MEDS: TOBRADEX 0.3-0.1% OPTH SUSP OTIC SCH (21:19)
[2019-04-16] MEDS: ACETAMINOPHEN 500 MG TAB PO PRN ×2 (02:28→14:49)
[2019-04-16 04:53] LABS: Basophils % 0.4 % (0-1.3); Hematocrit 40.4 % (39.6-49.0); Lymphocytes % 9.1 % (15.3-44.8); MPV 9.1 fL (7.6-11.3); RBC Red Blood Cell Count 4.43 M/uL (4.33-5.43)
[2019-04-16 04:54] LABS: BUN Blood Urea Nitrogen 13 mg/dL (7-18); Bicarbonate 26 mmol/L (21-32); Glucose Level 160 mg/dL (74-106); Potassium 4.4 mmol/L (3.5-5.1); Sodium Level 140 mmol/L (136-145)
[2019-04-16 08:07] VITALS: O2SAT 98
[2019-04-16] MEDS: NICOTINE 21 MG/PAT TD SCH (10:00)
[2019-04-16] MEDS: FLUTICASONE 50MCG NASAL SPRAY NAS SCH (10:02)
[2019-04-16] MEDS: TOBRADEX 0.3-0.1% OPTH SUSP OTIC SCH (10:06)
[2019-04-16] MEDS: CEFEPIME/SWI 1gm 10 ML IV SCH (10:11)
[2019-04-16] MEDS: TRAMADOL HCL 50 MG TAB PO PRN (11:49)
[2019-04-16 12:23] VITALS: BP 105/62; TEMP 97.5
--- NOTE | 2019-04-16 12:26 | P.PN ---
Subjective Date of Service: 04/16/19 Primary Care Provider: none Chief Complaint: Left ear pain and drainage Patient seen and examined at bedside with RN. Chart reviewed. Case discussed with ENT. This AM feeling a little bit better. ENT put a wick in the Ear. Review of Systems 10-point ROS is otherwise unremarkable Physical Examination - Vital Signs Temperature: 97.5 F Blood Pressure: 105/62 Pulse: 56 Respirations: 16 Pulse Ox (%): 99 - Physical Exam General: Alert, In no apparent distress HEENT: Atraumatic, PERRLA, EOMI Neck: Supple, JVD not distended Respiratory: Clear to auscultation bilaterally, Normal air movement Cardiovascular: Regular rate/rhythm, Normal S1 S2 Gastrointestinal: Normal bowel sounds, No tenderness Musculoskeletal: No tenderness Integumentary: No rashes Neurological: Normal speech, Normal tone, Normal affect Lymphatics: No axilla or inguinal lymphadenopathy - Studies Microbiology Data (last 24 hrs): 04/14/19 02:05 Other - Left Ear Gram Stain - Final Medications List Reviewed: Yes Assessment And Plan - Current Problems (Diagnosis) (1) Mastoiditis Current Visit: Yes Status: Acute Plan: CT facial consistent with Otomatoiditis -currently on IV Maxipime and vancomycin(given the recent infection with Staph aureus) -ENT consulted on the case. Appreciated recommendations at this time -will continue with IV antibiotics and Otic ggt with IV decadron -cultures collected. Pending Qualifiers: Laterality: left Qualified Code(s): H70.92 - Unspecified mastoiditis, left ear (2) Otitis media Current Visit: Yes Status: Acute Plan: Severe otitis media and externa to the left ear with Mastoid Effusion and auricular lymph nodes enlargement -ENT consulted. Recommendations appreciated -Failed outpt therapy -also on ear drops at this time Ciprodex -will continue to monitor closely for any signs and symptoms of sepsis Qualifiers: Otitis media type: suppurative Chronicity: acute Laterality: left Recurrence: non-recurrent Spontaneous tympanic membrane rupture: without spontaneous rupture Qualified Code(s): H66.002 - Acute suppurative otitis media without spontaneous rupture of ear drum, left ear - Plan Pending clinical improvement at this time. Will continue to monitor patient here closely Discharge Plan: Home Plan to discharge in: 48 Hours - Code Status/Comfort Care Code Status Assessed: Yes Critical Care: No
[2019-04-16] MEDS: VANCOMYCIN 2 GM in NA CHLORIDE 0.9% 500 ML IVPB SCH (12:47)
--- NOTE | 2019-04-16 12:58 | P.DS ---
Admission Date: 04/14/19 Discharge Date: 04/16/19 Primary Care Provider: none Disposition: ROUTINE DISCHARGE Discharge Condition: GOOD Reason for Admission: Left ear pain and drainage - Problems (1) Mastoiditis Current Visit: Yes Status: Ruled-out Qualifiers: Laterality: left Qualified Code(s): H70.92 - Unspecified mastoiditis, left ear (2) Otitis media Current Visit: Yes Status: Acute Qualifiers: Otitis media type: suppurative Chronicity: acute Laterality: left Recurrence: non-recurrent Spontaneous tympanic membrane rupture: without spontaneous rupture Qualified Code(s): H66.002 - Acute suppurative otitis media without spontaneous rupture of ear drum, left ear Brief History of Present Illness: 29-year-old male presented to the emergency room with worsening left ear pain and swelling. Patient had reported increased swelling and pain to the left ear. He had some difficulty hearing over the past week. He denied any significant fever, chills. Pain worsened over time. Patient was seen yesterday in the emergency room. He was diagnosed with left otitis media and externa. He was given antibiotic therapy and sent home. Overnight pain to the left ear has worsened. He start to notice increased swelling to the left external ER can now. He also reported swelling to that left facial region and lymph nodes to the neck on the left side. He came to the ER for further evaluation. In the ER patient evaluated. Vital signs stable. Hemoglobin 14.5, white count 13.2. Percent neutrophils elevated at 82. Sed rate elevated at 25. Lactic acid and pro calcitonin within normal range. Sodium 139, potassium 4.1, BUN of 10, creatinine 0.96 with a GFR greater than 90. Glucose 94. CT head showed severe otitis externa and media. Very small left mastoid effusion noted. Multiple large anterior and posterior cervical lymph nodes noted. Patient was given IV antibiotic therapy. Patient was admitted for further evaluation and treatment. When I saw the patient in the ER, patient still had pain to the left ear. Swelling and adenopathy noted. Patient denies any recent injury. He does not use any err Plavix. He does work and a loud environmental. 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 Over the last year he has been having mild hearing loss. He reports that this past February he went on vacation and did a lot of water activities. He does shower and use the tub. He reports using cue tips weekly. Hospital Course: Overall during the hospital stay patient remained stable The patient was initially admitted to the hospital for severe. Has otitis externa along with otitis media and concerning for mastoiditis. CT was done which read as severe mastoiditis however a ENT was consulted who stated that patient most likely only has otitis externa as there is no effusion noted behind the mastoid process. Patient was started on IV antibiotics vancomycin and cefepime here in the hospital for coverage for MRSA along with Pseudomonas. Patient was also given Ciprodex while here in the hospital along with IV Decadron. After 48 hr patient had marked improvement in his symptoms. ENT was consulted Wick was placed and pt was DC home on Ciprodex upon improvmeent Vital Signs/Physical Exam: Temp Pulse Resp BP Pulse Ox 97.5 F 56 16 105/62 99 04/16/19 12:25 04/16/19 12:25 04/16/19 12:25 04/16/19 12:25 04/16/19 12:25 General: Alert, In no apparent distress HEENT: Atraumatic, PERRLA, EOMI Neck: Supple, JVD not distended Respiratory: Clear to auscultation bilaterally, Normal air movement Cardiovascular: Regular rate/rhythm, Normal S1 S2 Gastrointestinal: Normal bowel sounds, No tenderness Musculoskeletal: No tenderness Integumentary: No rashes Neurological: Normal speech, Normal tone, Normal affect Lymphatics: No axilla or inguinal lymphadenopathy Laboratory Data at Discharge: WBC 11.3 K/uL (4.3-10.9) H 04/16/19 03:42 Hgb 14.0 g/dL (13.6-17.9) 04/16/19 03:42 Hct 40.4 % (39.6-49.0) 04/16/19 03:42 Plt Count 287 K/uL (152-406) D 04/16/19 03:42 Sodium 140 mmol/L (136-145) 04/16/19 03:42 Potassium 4.4 mmol/L (3.5-5.1) 04/16/19 03:42 BUN 13 mg/dL (7-18) 04/16/19 03:42 Creatinine 0.92 mg/dL (0.55-1.3) 04/16/19 03:42 Glucose 160 mg/dL (74-106) H 04/16/19 03:42 Magnesium 2.0 mg/dL (1.8-2.4) 04/16/19 03:42 Total Bilirubin 0.6 mg/dL (0.2-1.0) 04/13/19 21:40 AST 27 U/L (15-37) 04/13/19 21:40 ALT 71 U/L (12-78) 04/13/19 21:40 Alkaline Phosphatase 107 U/L (45-117) 04/13/19 21:40 Home Medications: Ciprofloxacin /Dexameth Otic [Ciprodex Otic Suspension] 2 drops OT BID 14 Days # 1 btl 04/16/19 New Medications: Ciprofloxacin /Dexameth Otic [Ciprodex Otic Suspension] 2 drops OT BID 14 Days # 1 btl Diet: Regular Activity: Ad shad Followup: Bianca Mukherjee MD [ACTIVE - CAN ADMIT] - 1 Week
--- NOTE | 2019-04-16 13:55 | P.PN ---
Subjective Date of Service: 04/16/19 Primary Care Provider: none Chief Complaint: Left ear pain and drainage Attempted to see patient around 12:30PM but he was in the shower. If clinically improved, OK to d/c from ENT standpoint. Wick should fall out as swelling of EAC deecreases. Continue Tobradex. FU with ENT in about 1 week. Physical Examination - Vital Signs Temperature: 97.5 F Blood Pressure: 105/62 Pulse: 56 Respirations: 16 Pulse Ox (%): 99 - Studies Microbiology Data (last 24 hrs): 04/14/19 02:05 Other - Left Ear Gram Stain - Final Medications List Reviewed: Yes
--- NOTE | 2019-04-16 18:33 | CON ---
Reason For Consultation: Mastoiditis. History Of Present Illness: Mr. Head is a 29-year-old, who went to the emergency room with worseni ng ear pain and swelling with some difficulty hearing over the last week. He was seen in the emergen cy room the day prior to admission and diagnosed with left otitis media and externa. He was given an tibiotic therapy including eardrops and went home; however, over the prior 24 hours, he felt his symp toms including pain were worsening and also noted some swelling to the left preauricular area and enl argement of lymph nodes on the left side of the neck. In the emergency room, his sedimentation rate was mildly elevated at 25. His lactic acid and procalcitonin were normal. His white blood cell coun t was elevated at 13.2 with a left shift with 82% neutrophils. A CT scan of the head was done, which showed severe otitis externa and otitis media on the left side with a very small left mastoid effusi on. He was noted to have multiple enlarged anterior and posterior cervical lymph nodes and was admit jb for failed outpatient therapy. According to Dr. Nicholas' documentation, the patient reported that during the month of February, he was on vacation and was in the water frequently. He also reported us ing cotton swabs to clean the ear in the past. There was some confusion from my review of the emerge ncy room notes and discussion with the patient and his regarding placement of a wick. Past Medical And Surgical History: Reviewed from admission history and physical. Allergies: PATIENT IS ALLERGIC TO PENICILLIN. Physical Examination: Patient is in mild distress at the time of my exam at approximately noon on April 15, 2019. Judith ent's ear canal is significantly edematous with a small amount of debris. I am unable to view the ty mpanic membrane. On the left side, the external ear is minimally erythematous without significant sw elling of the pinna including the ear lobe. There are a palpable approximately 1 to 1.5 cm lymph nod es in the anterior triangle and some tenderness and fullness in the preauricular and parotid regions without obvious parotitis. He has some tenderness along the sabianist and postauricular region to palpa tion. Pupils are equal, round, reactive. Extraocular movements are intact. Nares are patent withou t obvious drainage. Lips, teeth, and tongue are unremarkable. Laboratory Data: CT scan of the temporal bone is reviewed. There is no evidence of bony erosion. T here is minimal opacification of the mastoid. There is significant thickening of the external audito ry canal and periauricular tissues with some opacification of the middle ear structure. Assessment: Left otitis externa infective with complication including cellulitis of the pinna and re active cervical lymphadenopathy. I placed a wick to the left ear, and we will switch him from polymy candace drops to TobraDex to aid in better gram-negative coverage as well as application of topical stero id to decrease swelling. I recommend a single dose of IV dexamethasone to help with overall degree o f inflammation. I recommend dry ear precautions. The wick typically falls out on its own as the swelling of the ear canal decreases. If patient is cl inically improving over the next 24 hours, he can be discharged and follow up with Dr. Mukherjee's offi ce in 1 week for re-evaluation and possible debridement of the ear canal if indicated. MARISELA/KYLAH Voice ID: [id number] Report ID: [id number]
== END 2019-04-16 15:44 | disposition home or self-care (01) | DRG 153 ==
LOC: ER 20:16 → ERHOLD 22:46 → 4TH 23:17 → OBSVTOIN 04-14 12:29
PROVIDERS: ADMIT Family Medicine; ATTEND Family Medicine
DX: H66.002 Acute suppurative otitis media without spontaneous rupture of ear drum, left ear (principal); H60.392 Other infective otitis externa, left ear; H60.12 Cellulitis of left external ear; R59.1 Generalized enlarged lymph nodes; B96.5 Pseudomonas (aeruginosa) (mallei) (pseudomallei) as the cause of diseases classified elsewhere; J32.1 Chronic frontal sinusitis; Z87.891 Personal history of nicotine dependence
CPT/HCPCS: 36415; 70480; 70491; 76377; 80048; 80076; 80202; 81003; 82550; 82962; 83605; 83735; 84145; 85025; 85652; 87040; 87070; 87077; 87186; 87205; 93005; 96365; 96367; 96368; 96375; 99285; G0378; J0692; J1100; J1650; J3010; J7030; Q9967

== ENCOUNTER 2019-07-28 06:42 | Emergency (ER) | payer SELFPAY ==
[2019-07-28] MEDS ORDERED: KETOROLAC 30 MG/ML INJ ONE (07:38)
[2019-07-28 07:47] LABS: Absolute Lymphocytes (CBC) 2.9 K/uL (0.7-4.9); Basophils % 0.9 % (0-1.3); Hematocrit 40.7 % (39.6-49.0); Lymphocytes % 35.9 % (15.3-44.8); MPV 9.1 fL (7.6-11.3); RBC Red Blood Cell Count 4.51 M/uL (4.33-5.43)
[2019-07-28 07:48] LABS: Protime INR 0.96
[2019-07-28 08:30] LABS: ALT/SGPT 87 U/L (12-78); AST/SGOT 34 U/L (15-37); Albumin 3.5 g/dL (3.4-5.0); Alkaline Phosphatase 102 U/L (45-117); BUN Blood Urea Nitrogen 16 mg/dL (7-18); Bicarbonate 27 mmol/L (21-32); Bilirubin Direct < 0.1 mg/dL (0-0.2); Bilirubin Total 0.3 mg/dL (0.2-1.0); Glucose Level 98 mg/dL (74-106); Magnesium 2.1 mg/dL (1.8-2.4); NT PRO-BNP 17 pg/mL (<125); Potassium 4.2 mmol/L (3.5-5.1); Protein, Total 6.8 g/dL (6.4-8.2); Sodium Level 141 mmol/L (136-145); Troponin (Emerg Dept Use Only) < 0.02 ng/mL (0.0-0.045)
--- NOTE | 2019-07-28 09:23 | EKG ---
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
--- NOTE | 2019-07-28 10:01 | RAD REPORT ---
EXAM DESCRIPTION: RAD - Chest Single View - 07/28/2019 9:33 am CLINICAL HISTORY: CHEST PAIN Chest pain. COMPARISON: Chest Pa And Lat (2 Views) dated 01/06/2019; CHEST SINGLE VIEW dated 06/13/2015; ABDOMEN ACUTE SERIES dated 08/17/2010 FINDINGS: Portable technique limits examination quality. The lungs are grossly clear. The heart is normal in size. No displaced fractures. IMPRESSION: No acute intrathoracic process suspected.
[2019-07-28 10:27] VITALS: TEMP 98
[2019-07-28 10:30] VITALS: BP 105/61; O2SAT 98
--- NOTE | 2019-07-28 11:23 | ER ---
Nurse's Notes [facility] Name: Kun Head Jr Age: 29 yrs Sex: Male : 1990 Arrival Date: 07/28/2019 Time: 06:44 Bed 19 Private MD: Diagnosis: Chest pain, unspecified Presentation: 07/28 06:56 Presenting complaint: Patient states: he started having mild chest pain last night at bb approx 1800 but the pain has gotten worse no radiation and is worse when he crosses his arms on pushes on his chest denies vomiting, nausea, SOB. Transition of care: patient was not received from another setting of care. Onset of symptoms was July 27, 2019. Risk Assessment: Do you want to hurt yourself or someone else? Patient reports no desire to harm self or others. Initial Sepsis Screen: Does the patient meet any 2 criteria? No. Patient's initial sepsis screen is negative. Does the patient have a suspected source of infection? No. Patient's initial sepsis screen is negative. Care prior to arrival: None. 06:56 Method Of Arrival: Ambulatory bb 06:56 Acuity: DEBO 3 bb 07:00 Note pt denies any heavy lifting. bb Historical: - Allergies: 06:59 PENICILLINS; bb - Home Meds: 06:59 None [Active]; bb - PMHx: 06:59 skin graft right knee; bb - PSHx: 06:59 skin graft right knee; bb - Immunization history:: Adult Immunizations up to date. - Social history:: Smoking status: Patient uses tobacco products, smokes one-half pack cigarettes per day, Patient uses alcohol, occasionally. - Ebola Screening: : No symptoms or risks identified at this time. Screenin:10 Abuse screen: Denies threats or abuse. Nutritional screening: No deficits noted. em Tuberculosis screening: No symptoms or risk factors identified. Fall Risk None identified. Assessment: 07:10 General: Appears in no apparent distress. comfortable, Behavior is calm, cooperative, em appropriate for age, Denies fever. Pain: Complains of pain in chest Pain does not radiate. Pain currently is 10 out of 10 on a pain scale. Pain began 1 day ago. Neuro: Level of Consciousness is awake, alert, obeys commands, Oriented to person, place, time, situation, Appropriate for age. Cardiovascular: Reports chest pain, Denies shortness of breath, Capillary refill < 3 seconds Patient's skin is warm and dry. Rhythm is sinus rhythm. Respiratory: Reports pain with movement pain with respiration Airway is patent Respiratory effort is even, unlabored, Respiratory pattern is regular, symmetrical, Denies cough. GI: Patient currently denies nausea, vomiting. Derm: Skin is intact, is healthy with good turgor, Skin is pink, warm \T\ dry. Musculoskeletal: Capillary refill < 3 seconds, Range of motion: intact in all extremities. 07:10 Reassessment: I agree with assessment completed by Deacon Bran LVN. aa5 09:38 Reassessment: Patient appears in no apparent distress at this time. Patient and/or em family updated on plan of care and expected duration. Pain level reassessed. Patient is alert, oriented x 3, equal unlabored respirations, skin warm/dry/pink. rates pain 4/10 Patient states feeling better. Patient states symptoms have improved. 10:16 Reassessment: Patient appears in no apparent distress at this time. Patient and/or em family updated on plan of care and expected duration. Pain level reassessed. Patient is alert, oriented x 3, equal unlabored respirations, skin warm/dry/pink. Patient states feeling better. Vital Signs: 06:59 BP 110 / 74; Pulse 60; Resp 14 S; Temp 98(O); Pulse Ox 98% on R/A; Weight 104.33 kg bb (R); Height 6 ft. 0 in. (182.88 cm) (R); Pain 9/10; 09:45 BP 101 / 61; Pulse 54; Resp 18; Pulse Ox 97% on R/A; Pain 4/10; em 10:16 BP 105 / 61; Pulse 51; Resp 16; Pulse Ox 98% on R/A; Pain 4/10; em 06:59 Body Mass Index 31.19 (104.33 kg, 182.88 cm) ED Course: 06:44 Patient arrived in ED. cl3 06:52 Cl Payne PA is PHCP. jmm 06:52 Blair Li MD is Attending Physician. jmm 06:58 Triage completed. bb 06:59 Arm band placed on Patient placed in an exam room, on a stretcher, on pulse oximetry. bb EKG completed in triage. Results shown to MD. 07:10 Patient has correct armband on for positive identification. Placed in gown. Bed in low em position. Call light in reach. Side rails up X2. Pulse ox on. NIBP on. 07:10 Patient maintains SpO2 saturation greater than 95% on room air. em 07:16 Deacon Bran LVN is Primary Nurse. em 07:28 Initial lab(s) drawn, by me, sent to lab. Inserted saline lock: 20 gauge in right em antecubital area, using aseptic technique. Blood collected. 08:21 XRAY Chest (1 view) In Process Unspecified. EDMS 10:16 No provider procedures requiring assistance completed. IV discontinued, intact, em bleeding controlled, No redness/swelling at site. Pressure dressing applied. Administered Medications: 07:38 Drug: Ketorolac 30 mg Route: IVP; Site: right antecubital; aa5 09:34 Follow up: Response: No adverse reaction; Marked relief of symptoms; Pain is decreased em Outcome: 09:57 Discharge ordered by MD. geovanny 10:16 Discharged to home ambulatory. em 10:16 Condition: good 10:16 Discharge instructions given to patient, Instructed on discharge instructions, follow up and referral plans. medication usage, Demonstrated understanding of instructions, follow-up care, medications, Prescriptions given X 2. 10:19 Patient left the ED. em Signatures: Dispatcher [employer] EDMS Cl Payne PA PA [facility] Deacon Bran LVN LVN em Venus Del Castillo RN RN bb Blanquita Shah RN RN aa5 Pam Dickerson cl3 Corrections: (The following items were deleted from the chart) 17:51 07:10 Pain: Pain does not radiate. Pain currently is 10 out of 10 on a pain scale. Pain aa5 began 1 day ago. em
--- NOTE | 2019-07-28 11:24 | EDPHYS ---
Physician Documentation [facility] Name: Kun Head Jr Age: 29 yrs Sex: Male : 1990 Arrival Date: 07/28/2019 Time: 06:44 Bed 19 Private MD: ED Physician Blair Li HPI: 07/28 07:15 This 29 yrs old Male presents to ER via Ambulatory with complaints of Chest [facility] Pain. 07:15 The patient or guardian reports chest pain that is located primarily in the anterior [facility] chest wall. The pain does not radiate. Associated signs and symptoms: Pertinent negatives: cough, shortness of breath. The chest pain is described as aching, sharp. Duration: The patient or guardian reports a single episode, that is still ongoing. Modifying factors: The symptoms are alleviated by nothing. the symptoms are aggravated by movement, palpation of area. This is a 29 year old male with no chronic medical conditions that presents to the ED with complaints of anterior wall chest pain which radiates to the right side. Pain began last night and has worsened since. Denies cough, fever, shortness of breath. . Historical: - Allergies: 06:59 PENICILLINS; bb - Home Meds: 06:59 None [Active]; bb - PMHx: 06:59 skin graft right knee; bb - PSHx: 06:59 skin graft right knee; bb - Immunization history:: Adult Immunizations up to date. - Social history:: Smoking status: Patient uses tobacco products, smokes one-half pack cigarettes per day, Patient uses alcohol, occasionally. - Ebola Screening: : No symptoms or risks identified at this time. ROS: 07:15 Constitutional: Negative for fever, chills, and weight loss. jmm 07:15 Cardiovascular: Positive for chest pain. 07:15 Respiratory: Negative for cough, shortness of breath. 07:15 Abdomen/GI: Negative for abdominal pain, nausea and vomiting, diarrhea. 07:15 Back: Negative for pain at rest. 07:15 All other systems are negative. Exam: 07:15 Constitutional: This is a well developed, well nourished patient who is awake, alert, jmm and in no acute distress. Head/Face: atraumatic. Eyes: EOMI, no conjunctival erythema appreciated ENT: Moist Mucus Membranes Neck: Trachea midline, Supple Chest/axilla: Normal chest wall appearance and motion. Cardiovascular: Regular rate and rhythm. No edema appreciated Respiratory: Normal respirations, no respiratory distress appreciated 07:15 Back: Normal ROM Skin: General appearance color normal MS/ Extremity: Moves all extremities, no obvious deformities appreciated, no edema noted to the lower extremities Neuro: Awake and alert, normal gait Psych: Behavior is normal, Mood is normal, Patient is cooperative and pleasant 07:15 Chest/axilla: Inspection: normal, Palpation: tenderness, that is moderate, that totally reproduces the patient's complaints. 07:15 Abdomen/GI: Inspection: abdomen appears normal, Bowel sounds: normal, Palpation: soft, nontender, in all quadrants. Vital Signs: 06:59 BP 110 / 74; Pulse 60; Resp 14 S; Temp 98(O); Pulse Ox 98% on R/A; Weight 104.33 kg bb (R); Height 6 ft. 0 in. (182.88 cm) (R); Pain 9/10; 09:45 BP 101 / 61; Pulse 54; Resp 18; Pulse Ox 97% on R/A; Pain 4/10; em 10:16 BP 105 / 61; Pulse 51; Resp 16; Pulse Ox 98% on R/A; Pain 4/10; em 06:59 Body Mass Index 31.19 (104.33 kg, 182.88 cm) bb MDM: 07:15 Patient medically screened. ira 09:39 Data reviewed: vital signs, nurses notes. ED course: Attempted to contact Dr. Marie. geovanny Left voicemail. . 09:55 Data reviewed: radiologic studies. Counseling: I had a detailed discussion with the [facility] patient and/or guardian regarding: the historical points, exam findings, and any diagnostic results supporting the discharge/admit diagnosis, lab results, radiology results, the need for outpatient follow up, to return to the emergency department if symptoms worsen or persist or if there are any questions or concerns that arise at home. ED course: Patient states feeling better after medication. 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 CP is most likely MS. I do not suspect ACS or PE at this time. PERC negative. Patient is otherwise given strict return precautions. Patient understood and agrees with the plan of care. . 07/28 07:18 Order name: Basic Metabolic Panel; Complete Time: 08:31 [facility] 07/28 07:18 Order name: CBC with Diff 07/28 07:18 Order name: LFT's; Complete Time: 08:31 [facility] 07/28 07:18 Order name: Magnesium; Complete Time: 08:31 [facility] 07/28 07:18 Order name: NT PRO-BNP; Complete Time: 08:31 [facility] 07/28 07:18 Order name: PT-INR [facility] 07/28 07:18 Order name: Troponin (emerg Dept Use Only); Complete Time: 08:31 [facility] 07/28 07:18 Order name: XRAY Chest (1 view) [facility] 07/28 07:18 Order name: EKG; Complete Time: 07:23 [facility] 07/28 07:18 Order name: Cardiac monitoring; Complete Time: 07:19 [facility] 07/28 07:18 Order name: EKG - Nurse/Tech; Complete Time: 07:19 [facility] 07/28 07:18 Order name: IV Saline Lock; Complete Time: 07:28 [facility] 07/28 07:18 Order name: Labs collected and sent; Complete Time: 07:28 [facility] 07/28 07:18 Order name: O2 Per Protocol; Complete Time: 07:29 07/28 07:18 Order name: O2 Sat Monitoring; Complete Time: 07:29 [facility] Administered Medications: 07:38 Drug: Ketorolac 30 mg Route: IVP; Site: right antecubital; aa5 09:34 Follow up: Response: No adverse reaction; Marked relief of symptoms; Pain is decreased em Disposition: 10:47 Co-signature as Attending Physician, Blair Li MD I agree with the assessment and ira plan of care. Disposition: 07/28/19 09:57 Discharged to Home. Impression: Chest pain, unspecified. - Condition is Stable. - Discharge Instructions: Nonspecific Chest Pain. - Prescriptions for Ibuprofen 800 mg Oral Tablet - take 1 tablet by ORAL route every 8 hours As needed take with food; 30 tablet. orphenadrine citrate 100 mg Oral Tablet Sustained Release - take 1 tablet by ORAL route 2 times per day As needed; 20 tablet. - Medication Reconciliation Form, Thank You Letter, Antibiotic Education, Prescription Opioid Use, Work release form form. - Follow up: Private Physician; When: 2 - 3 days; Reason: Recheck today's complaints, Continuance of care, Re-evaluation by your physician. Signatures: Dispatcher [employer] Blair Horton MD MD cha Mickail, Joel, PA PA jmm Munoz, Edgar, CLINICAL RESEARCH TECH CLINICAL RESEARCH TECH Venus Carvajal, RN RN bb Blanquita Shah RN RN aa5 Corrections: (The following items were deleted from the chart) 10:19 09:57 07/28/2019 09:57 Discharged to Home. Impression: Chest pain, unspecified. em Condition is Stable. Forms are Medication Reconciliation Form, Thank You Letter, Antibiotic Education, Prescription Opioid Use. Follow up: Private Physician; When: 2 - 3 days; Reason: Recheck today's complaints, Continuance of care, Re-evaluation by your physician. geovanny
== END 2019-07-28 10:19 | disposition home or self-care (01) ==
LOC: ER 06:42
DX: R07.9 Chest pain, unspecified (principal); F17.210 Nicotine dependence, cigarettes, uncomplicated; Z88.0 Allergy status to penicillin
CPT/HCPCS: 36415; 71045; 80048; 80076; 83735; 83880; 84484; 85025; 85610; 93005; 96374; 99285

== ENCOUNTER 2019-11-03 18:38 | Emergency (ER) | payer BC, SELFPAY ==
--- NOTE | 2019-11-03 19:15 | EDPHYS ---
Physician Documentation [facility] Name: Kun Head Jr Age: 29 yrs Sex: Male : 1990 Arrival Date: 11/03/2019 Time: 18:41 Bed 13 Private MD: ED Physician Blair Li HPI: 11/02 19:07 This 29 yrs old Male presents to ER via Ambulatory with complaints of Ear ira Pain. 19:07 The patient presents with drainage, a foreign body sensation, pain, swelling. The ira complaints affect the left ear. Onset: The symptoms/episode began/occurred 3 day(s) ago. Modifying factors: The symptoms are alleviated by covering ear, the symptoms are aggravated by pulling on ears, touching. Associated signs and symptoms: The patient has no apparent associated signs or symptoms. Severity of symptoms: At their worst the symptoms were moderate in the emergency department the symptoms are unchanged. The patient has not experienced similar symptoms in the past. Historical: - Allergies: 18:51 PENICILLINS; jl7 - Home Meds: 18:51 None [Active]; jl7 - PMHx: 18:51 skin graft right knee; jl7 - PSHx: 18:51 Knee surgery; jl7 - Immunization history:: Adult Immunizations unknown. - Social history:: Smoking status: Patient reports use of chewing tobacco. ROS: 19:10 Constitutional: Negative for fever, chills, and weight loss, Eyes: Negative for injury, ira pain, redness, and discharge, Neck: Negative for injury, pain, and swelling, Cardiovascular: Negative for chest pain, palpitations, and edema, Respiratory: Negative for shortness of breath, cough, wheezing, and pleuritic chest pain, Abdomen/GI: Negative for abdominal pain, nausea, vomiting, diarrhea, and constipation, Back: Negative for injury and pain, : Negative for injury, bleeding, discharge, and swelling, MS/Extremity: Negative for injury and deformity, Skin: Negative for injury, rash, and discoloration, Neuro: Negative for headache, weakness, numbness, tingling, and seizure, Psych: Negative for depression, anxiety, suicide ideation, homicidal ideation, and hallucinations, Allergy/Immunology: Negative for hives, rash, and allergies, Endocrine: Negative for neck swelling, polydipsia, polyuria, polyphagia, and marked weight changes, Hematologic/Lymphatic: Negative for swollen nodes, abnormal bleeding, and unusual bruising. 19:10 ENT: Positive for drainage from ear(s), ear pain, pulling at ears, muffled sounds, pt did Valsalva maneuver today, pain on left worse, also used q tips. Exam: 19:10 Constitutional: This is a well developed, well nourished patient who is awake, alert, ira and in no acute distress. Head/Face: Normocephalic, atraumatic. Eyes: Pupils equal round and reactive to light, extra-ocular motions intact. Lids and lashes normal. Conjunctiva and sclera are non-icteric and not injected. Cornea within normal limits. Periorbital areas with no swelling, redness, or edema. Neck: Trachea midline, no thyromegaly or masses palpated, and no cervical lymphadenopathy. Supple, full range of motion without nuchal rigidity, or vertebral point tenderness. No Meningismus. Chest/axilla: Normal chest wall appearance and motion. Nontender with no deformity. No lesions are appreciated. Cardiovascular: Regular rate and rhythm with a normal S1 and S2. No gallops, murmurs, or rubs. Normal PMI, no JVD. No pulse deficits. Respiratory: Lungs have equal breath sounds bilaterally, clear to auscultation and percussion. No rales, rhonchi or wheezes noted. No increased work of breathing, no retractions or nasal flaring. Abdomen/GI: Soft, non-tender, with normal bowel sounds. No distension or tympany. No guarding or rebound. No evidence of tenderness throughout. Back: No spinal tenderness. No costovertebral tenderness. Full range of motion. Skin: Warm, dry with normal turgor. Normal color with no rashes, no lesions, and no evidence of cellulitis. MS/ Extremity: Pulses equal, no cyanosis. Neurovascular intact. Full, normal range of motion. Neuro: Awake and alert, GCS 15, oriented to person, place, time, and situation. Cranial nerves II-XII grossly intact. Motor strength 5/5 in all extremities. Sensory grossly intact. Cerebellar exam normal. Normal gait. Psych: Awake, alert, with orientation to person, place and time. Behavior, mood, and affect are within normal limits. 19:10 ENT: External ear(s): are unremarkable, Ear canal(s): erythema, swelling, that is moderate, of the left canal, TM's: decreased mobility, dullness, erythema, that is mild, fluid levels, is not appreciated, hemotympanum, is not appreciated, loss of bony landmarks, that is mild, Posterior pharynx: no acute changes, Airway: normal, no evidence of obstruction. Vital Signs: 18:49 BP 118 / 77; Pulse 62; Resp 17; Temp 98; Pulse Ox 100% ; Weight 102.06 kg; Height 6 ft. jl7 (182.88 cm); Pain 8/10; 18:49 Body Mass Index 30.52 (102.06 kg, 182.88 cm) jl7 MDM: 18:48 Patient medically screened. ira 19:13 Data reviewed: vital signs, nurses notes. ira 19:16 ED course: explained to patient not to get water in ear, no q tips , and follow up or ira return to er if condition worsens. Administered Medications: 19:19 Drug: Motrin 800 mg Route: PO; mg2 19:30 Follow up: Response: No adverse reaction mg2 19:19 Not Given (out of stock): CIPRODEX 4 drops Otic in left ear once mg2 19:19 Drug: LevaQUIN 500 mg Route: PO; mg2 19:30 Follow up: Response: No adverse reaction mg2 19:20 Drug: Rocephin (cefTRIAXone) 1 grams Route: IM; Site: right gluteus; mg2 Disposition: 11/03/19 19:14 Discharged to Home. Impression: Otitis externa, Otitis media, unspecified, left ear. - Condition is Stable. - Discharge Instructions: Ear Drops, Adult, Otitis Media, Adult, Otitis Externa, [id number], Otitis Media, Adult, [id number], Ear Drops, Adult, [id number]. - Prescriptions for Levaquin 750 mg Oral Tablet - take 1 tablet by ORAL route once daily for 8-10 days; 9 tablet. Yokasta- D 12 Hour 60-120 mg Oral Tablet Sustained Release 12 hr - take 1 tablet by ORAL route every 12 hours As needed; 20 tablet. Ciprodex 0.3- 0.1 % Otic Drops, Suspension - instill 4 drops by OTIC route every 12 hours for 7 days left ear only, no q tips; 1 Container. - Medication Reconciliation Form, Thank You Letter, Antibiotic Education, Prescription Opioid Use form. - Follow up: Private Physician; When: 2 - 3 days; Reason: Recheck today's complaints, Continuance of care, Re-evaluation by your physician. Follow up: Bianca Mukherjee MD; When: 2 - 3 days; Reason: Recheck today's complaints, Re-evaluation by your physician. - Problem is new. - Symptoms have improved. Signatures: Blair Li MD MD cha Leal, Jahala RN RN jl7 Elroy Gómez RN RN mg2 Corrections: (The following items were deleted from the chart) 19:30 19:14 11/03/2019 19:14 Discharged to Home. Impression: Otitis externa; Otitis media, mg2 unspecified, left ear. Condition is Stable. Forms are Medication Reconciliation Form, Thank You Letter, Antibiotic Education, Prescription Opioid Use. Follow up: Private Physician; When: 2 - 3 days; Reason: Recheck today's complaints, Continuance of care, Re-evaluation by your physician. Follow up: Bianca Mukherjee; When: 2 - 3 days; Reason: Recheck today's complaints, Re-evaluation by your physician. Problem is new. Symptoms have improved. ira
--- NOTE | 2019-11-03 19:15 | ER ---
Nurse's Notes [facility] Name: Kun Head Jr Age: 29 yrs Sex: Male : 1990 Arrival Date: 11/03/2019 Time: 18:41 Bed 13 Private MD: Diagnosis: Otitis externa;Otitis media, unspecified, left ear Presentation: 11/02 18:49 Chief complaint: Patient states: Left ear started hurting yesterday, worsening today. jl7 Reports having to be admitted in the past for a left ear infection with staph. Coronavirus screen: Proceed with normal triage. Patient denies a cough. Patient denies shortness of breath or difficulty breathing. Patient denies measured and/or subjective temperature greater than 100.4F prior to today's visit. Patient denies travel on a cruise ship or to a country the [facility] currently lists as an affected area. Patient denies contact with known and/or suspected case of COVID-19. Ebola Screen: No symptoms or risks identified at this time. Initial Sepsis Screen: Does the patient meet any 2 criteria? No. Patient's initial sepsis screen is negative. Does the patient have a suspected source of infection? No. Patient's initial sepsis screen is negative. Risk Assessment: Do you want to hurt yourself or someone else? Patient reports no desire to harm self or others. Onset of symptoms was November 02, 2019. 18:49 Method Of Arrival: Ambulatory [facility] 18:49 Acuity: DEBO 4 jl7 Triage Assessment: 18:51 General: Appears in no apparent distress. uncomfortable, Behavior is calm, cooperative, jl7 appropriate for age. Pain: Complains of pain in left ear Pain does not radiate. Pain currently is 8 out of 10 on a pain scale. EENT: Tympanic membrane reddened on left ear Ear canal w/ drainage noted from left ear. Neuro: Level of Consciousness is awake, alert, obeys commands, Oriented to person, place, time, situation. Cardiovascular: Respiratory: Airway is patent Respiratory effort is even, unlabored, Respiratory pattern is regular, symmetrical. Derm: Skin is pink, warm \T\ dry. Historical: - Allergies: 18:51 PENICILLINS; jl7 - Home Meds: 18:51 None [Active]; jl7 - PMHx: 18:51 skin graft right knee; jl7 - PSHx: 18:51 Knee surgery; jl7 - Immunization history:: Adult Immunizations unknown. - Social history:: Smoking status: Patient reports use of chewing tobacco. Screenin:54 Abuse screen: Denies threats or abuse. Denies injuries from another. Nutritional jl7 screening: No deficits noted. Tuberculosis screening: No symptoms or risk factors identified. Fall Risk None identified. Assessment: 19:20 General: Appears in no apparent distress. comfortable. Pain: Complains of pain in left mg2 ear. Cardiovascular: No deficits noted. Respiratory: Airway is patent Respiratory effort is even, unlabored, Respiratory pattern is regular, symmetrical. EENT: Reports left ear pain. Vital Signs: 18:49 BP 118 / 77; Pulse 62; Resp 17; Temp 98; Pulse Ox 100% ; Weight 102.06 kg; Height 6 ft. jl7 (182.88 cm); Pain 8/10; 18:49 Body Mass Index 30.52 (102.06 kg, 182.88 cm) jl7 ED Course: 18:41 Patient arrived in ED. ag5 18:42 Aminta Trejo, ABBIE is Primary Nurse. jl7 18:48 Blair Li MD is Attending Physician. ira 18:51 Triage completed. jl7 18:51 Arm band placed on right wrist. jl7 18:54 Patient has correct armband on for positive identification. Bed in low position. Call jl7 light in reach. Side rails up X 1. Pulse ox on. NIBP on. 19:14 Bianca Mukherjee MD is Referral Physician. ira 19:21 No provider procedures requiring assistance completed. Patient did not have IV access mg2 during this emergency room visit. Administered Medications: 19:19 Drug: Motrin 800 mg Route: PO; mg2 19:30 Follow up: Response: No adverse reaction mg2 19:19 Not Given (out of stock): CIPRODEX 4 drops Otic in left ear once mg2 19:19 Drug: LevaQUIN 500 mg Route: PO; mg2 19:30 Follow up: Response: No adverse reaction mg2 19:20 Drug: Rocephin (cefTRIAXone) 1 grams Route: IM; Site: right gluteus; mg2 Outcome: 19:14 Discharge ordered by . ira 19:30 Patient left the ED. mg2 19:30 Discharged to home ambulatory. mg2 19:30 Condition: good 19:30 Discharge instructions given to patient, Instructed on discharge instructions, the need mg2 for admit, medication usage, Demonstrated understanding of instructions, follow-up care, medications, Prescriptions given X 3. Signatures: Blair Li MD MD cha Leal, Jahala RN RN jl7 Elroy Gómez RN RN mg2 Edyta Dominguez ag5
[2019-11-03] MEDS ORDERED: IBUPROFEN 400 MG TAB ONE (19:18)
[2019-11-03] MEDS ORDERED: CEFTRIAXONE 1000 MG/VIAL ONE (19:18)
[2019-11-03] MEDS ORDERED: levoFLOXacin 500 MG TAB ONE (19:18)
[2019-11-03] MEDS ORDERED: WATER FOR INJ,STERILE 10 ML ONE (19:18)
[2019-11-03 20:00] VITALS: BP 118/77; TEMP 98; O2SAT 100
== END 2019-11-03 19:30 | disposition home or self-care (01) ==
LOC: ER 18:38
DX: H66.92 Otitis media, unspecified, left ear (principal); H60.92 Unspecified otitis externa, left ear; Z88.0 Allergy status to penicillin; F17.220 Nicotine dependence, chewing tobacco, uncomplicated
CPT/HCPCS: 96372; 99283

== ENCOUNTER 2020-03-21 10:37 | Emergency (ER) | payer BC ==
--- NOTE | 2020-03-21 11:42 | EDPHYS ---
Physician Documentation [facility] Name: Kun Head Jr Age: 29 yrs Sex: Male : 1990 Arrival Date: 03/21/2020 Time: 10:40 Bed 14 Private MD: ED Physician Victor Manuel Mcpherson HPI: 03/21 11:37 This 29 yrs old Male presents to ER via Ambulatory with complaints of Ear cp Pain. 11:37 The patient presents with pain, that is acute, swelling, tenderness. The complaints cp affect the right ear. Onset: The symptoms/episode began/occurred 1 week(s) ago. Associated signs and symptoms: Pertinent negatives: cough, fever, sinus trouble, sore throat. Severity of symptoms: in the emergency department the symptoms are unchanged despite home interventions. Historical: - Allergies: 10:44 PENICILLINS; sv - PMHx: 10:44 skin graft right knee; sv - PSHx: 10:44 Knee surgery; sv - Immunization history:: Adult Immunizations up to date. - Social history:: Smoking status: Patient reports use of chewing tobacco. ROS: 11:38 Constitutional: Negative for body aches, chills, fever. cp 11:38 ENT: Positive for ear pain, Negative for drainage from ear(s), rhinorrhea, sinus congestion, sinus pain, sore throat. 11:38 Respiratory: Negative for cough. 11:38 Skin: Negative for rash. 11:38 Neuro: Negative for headache. 11:38 All other systems are negative. Exam: 11:39 Head/Face: Normocephalic, atraumatic. cp 11:39 Constitutional: The patient appears in no acute distress, alert, awake, well developed, well nourished. 11:39 Eyes: Periorbital structures: appear normal, Conjunctiva: normal, no exudate, no injection, Lids and lashes: appear normal, bilaterally. 11:39 ENT: External ear(s): pain with movement, that is mild, of the pinna of right ear, right ear canal and right preauricular area, Ear canal(s): erythema, that is moderate, of the right canal, foreign body, is not appreciated, purulent discharge, is not appreciated, swelling, of the right canal, TM's: erythema, that is moderate, on the right, Examination of the other ear shows no obvious abnormality, Nose: is normal, Posterior pharynx: Airway: no evidence of obstruction, patent. 11:39 Neck: ROM/movement: is normal, is supple, no meningismus, no nuchal rigidity. 11:39 Chest/axilla: Inspection: normal. 11:39 Cardiovascular: Rate: normal. 11:39 Respiratory: the patient does not display signs of respiratory distress, Respirations: normal, no use of accessory muscles, labored breathing, is not present. Vital Signs: 10:44 BP 119 / 80; Pulse 87; Resp 16; Temp 98.4; Pulse Ox 98% ; Weight 106.59 kg; Height 6 sv ft. 0 in. (182.88 cm); 12:22 BP 112 / 74; Pulse 70; Resp 16; Temp 98.2(O); Pulse Ox 98% on R/A; Pain 5/10; ls4 10:44 Body Mass Index 31.87 (106.59 kg, 182.88 cm) sv MDM: 11:30 Patient medically screened. cp 11:40 Differential diagnosis: otitis media, otitis externa, ruptured TM, foreign body, cp cerumen impaction. 11:40 Data reviewed: vital signs, nurses notes, and as a result, I will discharge patient. cp Counseling: I had a detailed discussion with the patient and/or guardian regarding: the historical points, exam findings, and any diagnostic results supporting the discharge/admit diagnosis, to return to the emergency department if symptoms worsen or persist or if there are any questions or concerns that arise at home. Administered Medications: No medications were administered Disposition: 11:45 Chart complete. cp Disposition: 03/21/20 11:41 Discharged to Home. Impression: Otitis media, unspecified, right ear, Otitis externa in other diseases classified elsewhere, right ear. - Condition is Stable. - Discharge Instructions: Ear Drops, Adult, Otitis Media, Adult, Otitis Externa. - Prescriptions for Ciprodex 0.3- 0.1 % Otic Drops, Suspension - instill 4 drop by OTIC route every 12 hours for 7 days , for ears ONLY; 1 Container. cefdinir 300 mg Oral capsule - take 1 capsule by ORAL route every 12 hours for 10 days; 20 capsule. - Medication Reconciliation Form, Thank You Letter, Antibiotic Education, Prescription Opioid Use form. - Follow up: Private Physician; When: 2 - 3 days; Reason: Worsening of condition. - Problem is new. - Symptoms have improved. Signatures: Bianca Cohn RN RN Blair Day PA PA cp Stewart, Lisa RN RN ls4 Corrections: (The following items were deleted from the chart) 12:24 11:41 03/21/2020 11:41 Discharged to Home. Impression: Otitis media, unspecified, right ls4 ear; Otitis externa in other diseases classified elsewhere, right ear. Condition is Stable. Forms are Medication Reconciliation Form, Thank You Letter, Antibiotic Education, Prescription Opioid Use. Follow up: Private Physician; When: 2 - 3 days; Reason: Worsening of condition. Problem is new. Symptoms have improved. cp
--- NOTE | 2020-03-21 11:42 | ER ---
Nurse's Notes [facility] Name: Kun Head Jr Age: 29 yrs Sex: Male : 1990 Arrival Date: 03/21/2020 Time: 10:40 Bed 14 Private MD: Diagnosis: Otitis media, unspecified, right ear;Otitis externa in other diseases classified elsewhere, right ear Presentation: 03/21 10:44 Chief complaint: Patient states: right ear pain/swelling x 1 week. Coronavirus screen: sv Client denies travel out of the [place] in the last 14 days. At this time, the client does not indicate any symptoms associated with coronavirus-19. Ebola Screen: No symptoms or risks identified at this time. Risk Assessment: Do you want to hurt yourself or someone else? Patient reports no desire to harm self or others. Onset of symptoms was March 14, 2020. 10:44 Method Of Arrival: Ambulatory sv 10:44 Acuity: DEBO 5 sv 10:44 Initial Sepsis Screen: Does the patient meet any 2 criteria? No. Patient's initial sv sepsis screen is negative. Does the patient have a suspected source of infection? No. Patient's initial sepsis screen is negative. Triage Assessment: 10:44 General: Appears in no apparent distress. comfortable, Behavior is calm, cooperative, sv appropriate for age. Pain: Complains of pain in right ear. EENT: Reports pain in right ear. Neuro: Level of Consciousness is awake, alert, obeys commands, Gait is steady. Respiratory: Airway is patent Respiratory effort is even, unlabored. Historical: - Allergies: 10:44 PENICILLINS; sv - PMHx: 10:44 skin graft right knee; sv - PSHx: 10:44 Knee surgery; sv - Immunization history:: Adult Immunizations up to date. - Social history:: Smoking status: Patient reports use of chewing tobacco. Screenin:43 Abuse screen: Denies threats or abuse. Denies injuries from another. Nutritional ss screening: On. Tuberculosis screening: Never had TB. Fall Risk None identified. Assessment: 11:43 General: Appears in no apparent distress. comfortable, Behavior is calm, cooperative. ss Pain: Complains of pain in right ear Pain began 1 week ago Is continuous. Neuro: Level of Consciousness is awake, alert, obeys commands, Oriented to person, place, time, situation. Cardiovascular: Capillary refill < 3 seconds is brisk in bilateral fingers. Respiratory: Airway is patent Respiratory effort is even, unlabored, Respiratory pattern is regular, symmetrical. GI: Patient currently denies diarrhea, nausea, vomiting. : No signs and/or symptoms were reported regarding the genitourinary system. EENT:. Derm: Skin is healthy with good turgor, Skin is pink, warm \T\ dry. normal. Musculoskeletal: Circulation, motion, and sensation intact. Range of motion: intact in all extremities. Vital Signs: 10:44 BP 119 / 80; Pulse 87; Resp 16; Temp 98.4; Pulse Ox 98% ; Weight 106.59 kg; Height 6 sv ft. 0 in. (182.88 cm); 12:22 BP 112 / 74; Pulse 70; Resp 16; Temp 98.2(O); Pulse Ox 98% on R/A; Pain 5/10; ls4 10:44 Body Mass Index 31.87 (106.59 kg, 182.88 cm) sv ED Course: 10:40 Patient arrived in ED. mr 10:43 Arm band placed on. sv 10:44 Triage completed. sv 11:16 Blair Day PA is PHCP. cp 11:16 Victor Manuel Mcpherson MD is Attending Physician. cp 11:43 Irene Casey, ABBIE is Primary Nurse. ss 11:43 Patient has correct armband on for positive identification. Bed in low position. Call ss light in reach. 11:43 No provider procedures requiring assistance completed. Patient did not have IV access ss during this emergency room visit. 12:22 No apparent distress. ls4 Administered Medications: No medications were administered Outcome: 11:41 Discharge ordered by MD. cp 11:43 Condition: good ss 12:23 Discharged to home ambulatory. ls4 12:23 Discharge instructions given to patient, Instructed on discharge instructions, follow up and referral plans. safety practices, Demonstrated understanding of instructions, follow-up care, medications, Prescriptions given X 2. 12:24 Patient left the ED. ls4 Signatures: Bianca Cohn RN RN Emily Duarte mr Irene Casey RN RN Blair Day PA PA cp Stewart, Lisa, RN RN ls4 Corrections: (The following items were deleted from the chart) 10:46 10:44 Chief complaint: Patient states: right ear pain x 1 week sv sv 10:47 10:44 Pulse 87bpm; Resp 16bpm; Pulse Ox 98%; Temp 98.4F; 106.59 kg; Height 6 ft. 0 in.; sv BMI: 31.8; sv
[2020-03-24 16:46] VITALS: O2SAT 98
[2020-03-24 16:48] VITALS: BP 112/74; TEMP 98.2
== END 2020-03-21 12:24 | disposition home or self-care (01) ==
LOC: ER 10:37
DX: H66.91 Otitis media, unspecified, right ear (principal); H60.91 Unspecified otitis externa, right ear; F17.220 Nicotine dependence, chewing tobacco, uncomplicated; Z88.0 Allergy status to penicillin
CPT/HCPCS: 99282

== ENCOUNTER 2021-03-22 08:57 | Emergency (ER) | payer SELFPAY ==
[2021-03-22] MEDS ORDERED: predniSONE 20 MG TAB ONE (10:36)
[2021-03-22] MEDS ORDERED: AZITHROMYCIN 250 MG TAB ONE (10:36)
--- NOTE | 2021-03-22 11:38 | ER ---
Nurse's Notes [facility] Name: Kun Head Jr Age: 30 yrs Sex: Male : 1990 Arrival Date: 03/22/2021 Time: 09:10 Bed 12 Private MD: Diagnosis: Acute pharyngitis, unspecified;Bronchitis, not specified as acute or chronic Presentation: 03/22 09:11 Chief complaint: Patient states: Cough, sore throat, diarrhea x4 days. Coronavirus jl7 screen: Vaccine status: Patient reports being unvaccinated. cough unrelated to allergies, diarrhea, sore throat, Client presents with at least one sign or symptom that may indicate coronavirus-19. Standard/surgical mask placed on the client. Provider contacted for isolation considerations. Ebola Screen: No symptoms or risks identified at this time. Initial Sepsis Screen: Does the patient meet any 2 criteria? No. Patient's initial sepsis screen is negative. Does the patient have a suspected source of infection? No. Patient's initial sepsis screen is negative. Risk Assessment: Do you want to hurt yourself or someone else? Patient reports no desire to harm self or others. Onset of symptoms was March 19, 2021. 09:11 Method Of Arrival: Ambulatory 7 09:11 Acuity: DEBO 4 jl7 Triage Assessment: 09:13 General: Appears in no apparent distress. uncomfortable, Behavior is calm, cooperative, jl7 appropriate for age. Pain: Complains of pain in sore throat Pain currently is 9 out of 10 on a pain scale. EENT: Throat is reddened. Neuro: Level of Consciousness is awake, alert, obeys commands, Oriented to person, place, time, situation. Cardiovascular: Patient's skin is warm and dry. Respiratory: Airway is patent Respiratory effort is even, unlabored, Respiratory pattern is regular, symmetrical. Derm: Skin is pink, warm \T\ dry. Historical: - Allergies: 09:13 PENICILLINS; jl7 - Home Meds: 09:13 None [Active]; jl7 - PMHx: 09:13 skin graft right knee; jl7 - PSHx: 09:13 None; jl7 - Immunization history:: Adult Immunizations not up to date, Client reports having NOT received the Covid vaccine. - Social history:: Smoking status: Patient denies any tobacco usage or history of. - Family history:: not pertinent. Screenin:33 Abuse screen: Denies threats or abuse. Denies injuries from another. Nutritional jl7 screening: No deficits noted. Tuberculosis screening: No symptoms or risk factors identified. Fall Risk None identified. Assessment: 09:33 General: See triage. jl7 10:26 General: Appears in no apparent distress. comfortable, Behavior is calm, cooperative, ap3 appropriate for age. Neuro: Level of Consciousness is awake, alert, obeys commands, Oriented to person, place, time, situation, Appropriate for age. Respiratory: Airway is patent Respiratory effort is even, unlabored, Respiratory pattern is regular, symmetrical, Breath sounds are clear bilaterally. GI: No signs and/or symptoms were reported involving the gastrointestinal system. : No signs and/or symptoms were reported regarding the genitourinary system. Vital Signs: 09:11 BP 124 / 92; Pulse 67; Resp 17; Temp 98; Pulse Ox 95% ; Weight 102.06 kg; Height 6 ft. jl7 0 in. (182.88 cm); Pain 9/10; 09:11 Body Mass Index 30.52 (102.06 kg, 182.88 cm) jl7 ED Course: 09:10 Patient arrived in ED. jl7 09:13 Triage completed. jl7 09:13 Arm band placed on right wrist. jl7 09:16 Aminta Trejo, ABBIE is Primary Nurse. jl7 09:22 Blair Li MD is Attending Physician. ira 09:33 Patient has correct armband on for positive identification. Call light in reach. jl7 09:33 COVID swab sent to lab. Strep swab sent to lab. jl7 10:09 Primary Nurse role handed off by Aminta Trejo, ABBIE ap3 10:09 Louisa Meadows, ABBIE is Primary Nurse. ap3 11:37 Lance Alba DO is Referral Physician. ira 11:50 No provider procedures requiring assistance completed. Patient did not have IV access ap3 during this emergency room visit. Administered Medications: 10:25 Drug: Zithromax (azithromycin) 500 mg Route: PO; ap3 11:51 Follow up: Response: No adverse reaction ap3 10:25 Drug: predniSONE 60 mg Route: PO; ap3 11:51 Follow up: Response: No adverse reaction ap3 Outcome: 11:37 Discharge ordered by . ira 11:50 Discharged to home ambulatory. ap3 11:50 Condition: good 11:50 Discharge instructions given to patient, Instructed on discharge instructions, follow up and referral plans. medication usage, COVID information Demonstrated understanding of instructions, follow-up care, medications, covid information Prescriptions given X 3. 11:51 Patient left the ED. ap3 Signatures: Blair Li MD MD cha Leal, Jahala RN RN jl7 Louisa Meadows RN RN ap3
--- NOTE | 2021-03-22 11:38 | EDPHYS ---
Physician Documentation [facility] Name: Kun Head Jr Age: 30 yrs Sex: Male : 1990 Arrival Date: 03/22/2021 Time: 09:10 Bed 12 Private MD: ED Physician Blair Li HPI: 03/22 09:39 This 30 yrs old Male presents to ER via Ambulatory with complaints of Cough, ira Sore Throat. 09:39 The patient or guardian reports cough, described as mild, difficulty breathing. Onset: ira The symptoms/episode began/occurred 3 day(s) ago. 09:39 The patient presents with sore throat. The patient describes throat pain as raw. ira Severity of symptoms: At their worst the symptoms were moderate, in the emergency department the symptoms are unchanged. Modifying factors: The symptoms are alleviated by nothing, the symptoms are aggravated by talking. Modifying factors: The symptoms are alleviated by nothing, the symptoms are aggravated by nothing. Associated signs and symptoms: The patient has no apparent associated signs or symptoms. Historical: - Allergies: 09:13 PENICILLINS; jl7 - Home Meds: 09:13 None [Active]; jl7 - PMHx: 09:13 skin graft right knee; jl7 - PSHx: 09:13 None; jl7 - Immunization history:: Adult Immunizations not up to date, Client reports having NOT received the Covid vaccine. - Social history:: Smoking status: Patient denies any tobacco usage or history of. - Family history:: not pertinent. ROS: 09:39 Constitutional: Negative for fever, chills, and weight loss, Eyes: Negative for injury, ira pain, redness, and discharge, Neck: Negative for injury, pain, and swelling, Cardiovascular: Negative for chest pain, palpitations, and edema, Abdomen/GI: Negative for abdominal pain, nausea, vomiting, diarrhea, and constipation, Back: Negative for injury and pain, : Negative for injury, bleeding, discharge, and swelling, MS/Extremity: Negative for injury and deformity, Skin: Negative for injury, rash, and discoloration, Neuro: Negative for headache, weakness, numbness, tingling, and seizure, Psych: Negative for depression, anxiety, suicide ideation, homicidal ideation, and hallucinations, Allergy/Immunology: Negative for hives, rash, and allergies, Endocrine: Negative for neck swelling, polydipsia, polyuria, polyphagia, and marked weight changes. 09:39 Respiratory: Positive for cough, "sounds productive". Exam: 09:39 Constitutional: This is a well developed, well nourished patient who is awake, alert, ira and in no acute distress. Head/Face: Normocephalic, atraumatic. Eyes: Pupils equal round and reactive to light, extra-ocular motions intact. Lids and lashes normal. Conjunctiva and sclera are non-icteric and not injected. Cornea within normal limits. Periorbital areas with no swelling, redness, or edema. Neck: Trachea midline, no thyromegaly or masses palpated, and no cervical lymphadenopathy. Supple, full range of motion without nuchal rigidity, or vertebral point tenderness. No Meningismus. Chest/axilla: Normal chest wall appearance and motion. Nontender with no deformity. No lesions are appreciated. Cardiovascular: Regular rate and rhythm with a normal S1 and S2. No gallops, murmurs, or rubs. Normal PMI, no JVD. No pulse deficits. Abdomen/GI: Soft, non-tender, with normal bowel sounds. No distension or tympany. No guarding or rebound. No evidence of tenderness throughout. Back: No spinal tenderness. No costovertebral tenderness. Full range of motion. Skin: Warm, dry with normal turgor. Normal color with no rashes, no lesions, and no evidence of cellulitis. MS/ Extremity: Pulses equal, no cyanosis. Neurovascular intact. Full, normal range of motion. Neuro: Awake and alert, GCS 15, oriented to person, place, time, and situation. Cranial nerves II-XII grossly intact. Motor strength 5/5 in all extremities. Sensory grossly intact. Cerebellar exam normal. Normal gait. Psych: Awake, alert, with orientation to person, place and time. Behavior, mood, and affect are within normal limits. 09:39 ENT: Posterior pharynx: Tonsils: bilaterally enlarged, with erythema, Uvula: normal, swelling, that is mild, erythema, that is mild, exudate, is not appreciated, peritonsillar mass, is not appreciated, pooling of secretions, is not appreciated. Vital Signs: 09:11 BP 124 / 92; Pulse 67; Resp 17; Temp 98; Pulse Ox 95% ; Weight 102.06 kg; Height 6 ft. jl7 0 in. (182.88 cm); Pain 9/10; 09:11 Body Mass Index 30.52 (102.06 kg, 182.88 cm) jl7 MDM: 09:22 Patient medically screened. ira 09:41 Differential diagnosis: bronchitis, echovirus infection, group A strep tonsillitis, ira laryngitis, pharyngitis, tonsillitis, upper respiratory infection, uvulitis. Differential Diagnosis: Bronchitis Influenza Upper Respiratory Infection Sinusitis Pharyngitis Pneumonia. Data reviewed: vital signs, nurses notes, lab test result(s). Data interpreted: test man: rate is 67 beats/min, rhythm is regular, Pulse oximetry: on room air is 95 %. Counseling: I had a detailed discussion with the patient and/or guardian regarding: the historical points, exam findings, and any diagnostic results supporting the discharge/admit diagnosis, lab results, radiology results, the need for outpatient follow up, for definitive care, a family practitioner. 03/22 09:17 Order name: Strep [facility] Administered Medications: 10:25 Drug: Zithromax (azithromycin) 500 mg Route: PO; ap3 11:51 Follow up: Response: No adverse reaction ap3 10:25 Drug: predniSONE 60 mg Route: PO; ap3 11:51 Follow up: Response: No adverse reaction ap3 Disposition Summary: 03/22/21 11:37 Discharge Ordered Location: Home ira Problem: new ira Symptoms: have improved ira Condition: Stable ira Diagnosis - Acute pharyngitis, unspecified ira - Bronchitis, not specified as acute or chronic ira Followup: ira - With: Private Physician - When: 2 - 3 days - Reason: Recheck today's complaints, Continuance of care, Re-evaluation by your physician Followup: ira - With: - When: 2 - 3 days - Reason: Recheck today's complaints, Continuance of care, Re-evaluation by your physician Discharge Instructions: - Discharge Summary Sheet ira - Acute Bronchitis, Adult ira - Pharyngitis ira - Sore Throat ira - Upper Respiratory Infection, Adult ira - Viral Respiratory Infection ira - Acute Bronchitis, Adult, [id number] ira Forms: - Medication Reconciliation Form ira - Thank You Letter ira - Antibiotic Education ira - Prescription Opioid Use ira - Work release form ap3 Prescriptions: - Pepcid 20 mg Oral Tablet - take 1 tablet by ORAL route every 12 hours for 15 days; 30 tablet; Refills: 0, [facility] Product Selection Permitted - Prednisone 20 mg Oral Tablet - take 2 tablets by ORAL route once daily for 5 days; 10 tablet; Refills: 0, [facility] Product Selection Permitted - Zithromax 500 mg Oral Tablet - take 1 tablet by ORAL route once daily for 5 days; 5 tablet; Refills: 0, [facility] Product Selection Permitted Signatures: Dispatcher [employer] Blair Horton MD MD cha Leal, Jahala RN RN jl7 Louisa Meadows RN RN ap3 Corrections: (The following items were deleted from the chart) 11:06 09:17 CORONAVIRUS+MR.LAB.BRZ ordered. EDND EDMS
[2021-03-22 11:56] VITALS: BP 124/92; TEMP 98; O2SAT 95
== END 2021-03-22 11:51 | disposition home or self-care (01) ==
LOC: ER 08:57
DX: J40 Bronchitis, not specified as acute or chronic (principal); Z20.822 Contact with and (suspected) exposure to COVID-19; Z88.0 Allergy status to penicillin
CPT/HCPCS: 87070; 87081; 99283; J7512; U0003

== ENCOUNTER 2021-07-09 21:26 | Emergency (ER) | payer BC, SELFPAY ==
--- NOTE | 2021-07-09 22:13 | EDPHYS ---
Physician Documentation [facility] Name: Kun Head Jr Age: 31 yrs Sex: Male : 1990 Arrival Date: 07/09/2021 Time: 21:30 Bed Treatment Private MD: ED Physician Valente Berry HPI: 07/09 22:09 This 31 yrs old Male presents to ER via Ambulatory with complaints of Ear Pain. pm1 22:09 The patient presents with pain. The complaints affect the right ear. Onset: The pm1 symptoms/episode began/occurred yesterday. Modifying factors: The symptoms are alleviated by nothing, the symptoms are aggravated by nothing. Associated signs and symptoms: Pertinent positives: decreased hearing, Pertinent negatives: fever. Severity of symptoms: in the emergency department the symptoms are worse. The patient has experienced a previous episode, and the symptoms today are exactly the same, to prior swimmer's ear. The patient has not recently seen a physician. Historical: - Allergies: 21:59 PENICILLINS; bb - Home Meds: 21:59 None [Active]; bb - PMHx: 21:59 skin graft right knee; bb - PSHx: 21:59 knee surgery; bb - Immunization history:: Adult Immunizations up to date, Client reports having NOT received the Covid vaccine. - Social history:: Smoking status: Patient denies any tobacco usage or history of. Patient uses alcohol, occasionally. Patient/guardian denies using street drugs. ROS: 22:09 Constitutional: Negative for fever, chills, and weight loss. pm1 22:09 Cardiovascular: Negative for chest pain, palpitations, and edema, Respiratory: Negative for shortness of breath, cough, wheezing, and pleuritic chest pain, Skin: Negative for injury, rash, and discoloration, Neuro: Negative for headache, weakness, numbness, tingling, and seizure. 22:09 ENT: Positive for ear pain, right ear, Negative for rhinorrhea, sinus congestion, sinus pain, sore throat. 22:09 All other systems are negative. Exam: 22:09 Constitutional: This is a well developed, well nourished patient who is awake, alert, pm1 and in no acute distress. Head/Face: Normocephalic, atraumatic. 22:09 Skin: Warm, dry with normal turgor. Normal color with no rashes, no lesions, and no evidence of cellulitis. MS/ Extremity: Pulses equal, no cyanosis. Neurovascular intact. Full, normal range of motion. 22:09 Eyes: Exam is negative for acute changes, Periorbital structures: appear normal, Extraocular movements: no acute changes, Conjunctiva: no acute changes, no injection, Sclera: no acute changes, icterus, is not appreciated. 22:09 ENT: External ear(s): are unremarkable, Ear canal(s): swelling, that is moderate, of the right canal, TM's: not visable, swelling from otitis externa, Examination of the other ear shows no obvious abnormality, Voice: no acute changes. 22:09 Cardiovascular: Exam negative for acute changes, Rate: normal, Rhythm: regular, Pulses: no pulse deficits are appreciated. 22:09 Respiratory: Exam negative for acute changes, respiratory distress, shortness of breath. 22:09 Neuro: Exam negative for acute changes, Orientation: is normal, Mentation: is normal, Motor: is normal, moves all fours. Vital Signs: 21:58 BP 118 / 81; Pulse 77; Resp 16 S; Temp 98.8(O); Pulse Ox 98% on R/A; Weight 99.79 kg bb (R); Height 6 ft. 0 in. (182.88 cm) (R); Pain 10/10; 21:58 Body Mass Index 29.84 (99.79 kg, 182.88 cm) bb MDM: 22:09 Data reviewed: vital signs. Data interpreted: Pulse oximetry: on room air is 98 %. pm1 Interpretation: normal. Counseling: I had a detailed discussion with the patient and/or guardian regarding: the historical points, exam findings, and any diagnostic results supporting the discharge/admit diagnosis, the need for outpatient follow up, an ENT specialist, a family practitioner, to return to the emergency department if symptoms worsen or persist or if there are any questions or concerns that arise at home. 22:12 Patient medically screened. pm1 Administered Medications: 22:31 Drug: [place] (HYDROcodone-acetaminophen) (7.5 mg-325 mg) 1 tabs Route: PO; bb 22:37 Follow up: Response: Medication administered at discharge.; RASS: Alert and Calm (0) bb Disposition: 07/10 04:25 Co-signature as Attending Physician, Valente Berry MD. mh7 Disposition Summary: 07/09/21 22:12 Discharge Ordered Location: Home pm1 Problem: new pm1 Symptoms: have improved pm1 Condition: Stable pm1 Diagnosis - Unspecified otitis externa, right ear pm1 Followup: pm1 - With: Emergency Department - When: As needed - Reason: Worsening of condition Followup: pm1 - With: Private Physician - When: 2 - 3 days - Reason: Recheck today's complaints, Continuance of care, Re-evaluation by your physician Followup: pm1 - With: Joellen Jenkins MD - When: 2 - 3 days - Reason: Recheck today's complaints, Continuance of care, Re-evaluation by your physician Discharge Instructions: - Discharge Summary Sheet pm1 - Ear Drops, Adult pm1 - Otitis Externa pm1 Forms: - Medication Reconciliation Form pm1 - Thank You Letter pm1 - Antibiotic Education pm1 - Prescription Opioid Use pm1 Prescriptions: - Zithromax Z-Byron 250 mg Oral Tablet - take 1 tablet by ORAL route as directed for 5 days Day 1 - take two (2) tablets pm1 one time. Day 2, 3, 4 , 5 take one (1) tablet once daily.; 6 tablet; Refills: 0, Product Selection Permitted - bvyitiomdiuuhe-koepqxps-ctogqsjon otic suspension 10mg (1%)/3.5mg (0.35%)/[id number]/10mL - instill 4 drop by OTIC route every 6 hours for 10 days; 10 milliliter; Refills: pm1 0, Product Selection Permitted - Tramadol 50 mg Oral Tablet - take 1 tablet by ORAL route every 8 hours as needed; 12 tablet; Refills: 0, pm1 Product Selection Permitted Signatures: Venus Del Castillo, RN RN Juan F Fisher, KRISTIN [employer] pm1 Valente Berry MD MD mh7
--- NOTE | 2021-07-09 22:13 | ER ---
Nurse's Notes [facility] Name: Kun Head Jr Age: 31 yrs Sex: Male : 1990 Arrival Date: 07/09/2021 Time: 21:30 Bed Treatment Private MD: Diagnosis: Unspecified otitis externa, right ear Presentation: 07/09 21:58 Chief complaint: Patient states: he is having right ear pain since yesterday which is bb worsening. Coronavirus screen: At this time, the client does not indicate any symptoms associated with coronavirus-19. Ebola Screen: No symptoms or risks identified at this time. Initial Sepsis Screen: Does the patient meet any 2 criteria? No. Patient's initial sepsis screen is negative. Does the patient have a suspected source of infection? No. Patient's initial sepsis screen is negative. Risk Assessment: Do you want to hurt yourself or someone else? Patient reports no desire to harm self or others. Onset of symptoms was July 08, 2021. 21:58 Method Of Arrival: Ambulatory bb 21:58 Acuity: DEBO 5 bb Triage Assessment: 21:59 General: Appears in no apparent distress. Behavior is calm, cooperative. Pain: bb Complains of pain in right ear Pain currently is 10 out of 10 on a pain scale. EENT: Reports pain in right ear. Neuro: Level of Consciousness is awake, alert, obeys commands, Oriented to person, place, time, situation. Cardiovascular: Capillary refill < 3 seconds Patient's skin is warm and dry. Respiratory: Airway is patent Respiratory effort is even, labored, Respiratory pattern is regular. GI: No signs and/or symptoms were reported involving the gastrointestinal system. Derm: Skin is pink, warm \T\ dry. Musculoskeletal: Circulation, motion, and sensation intact. Historical: - Allergies: 21:59 PENICILLINS; bb - Home Meds: 21:59 None [Active]; bb - PMHx: 21:59 skin graft right knee; bb - PSHx: 21:59 knee surgery; bb - Immunization history:: Adult Immunizations up to date, Client reports having NOT received the Covid vaccine. - Social history:: Smoking status: Patient denies any tobacco usage or history of. Patient uses alcohol, occasionally. Patient/guardian denies using street drugs. Screenin:01 Abuse screen: Denies threats or abuse. Nutritional screening: No deficits noted. bb Tuberculosis screening: No symptoms or risk factors identified. Fall Risk None identified. Assessment: 22:01 Reassessment: No changes from previously documented assessment. Patient is alert, bb oriented x 3, equal unlabored respirations, skin warm/dry/pink. see triage assessment. 22:37 Reassessment: Patient is alert, oriented x 3, equal unlabored respirations, skin bb warm/dry/pink. pt verbalized understanding of and agree to plan of care discharge instructions given pt ambulated with steady gait to exit accompanied by spouse. Vital Signs: 21:58 BP 118 / 81; Pulse 77; Resp 16 S; Temp 98.8(O); Pulse Ox 98% on R/A; Weight 99.79 kg bb (R); Height 6 ft. 0 in. (182.88 cm) (R); Pain 10/10; 21:58 Body Mass Index 29.84 (99.79 kg, 182.88 cm) bb ED Course: 21:30 Patient arrived in ED. mr 21:59 Triage completed. bb 21:59 Arm band placed on Patient placed in an exam room. bb 22:01 Patient has correct armband on for positive identification. bb 22:04 Juan F Chase NP is PHCP. pm1 22:04 Valente Berry MD is Attending Physician. pm1 22:18 Venus Del Castillo, RN is Primary Nurse. bb 22:24 Joellen Jenkins MD is Referral Physician. pm1 22:37 No provider procedures requiring assistance completed. Patient did not have IV access bb during this emergency room visit. Administered Medications: 22:31 Drug: [place] (HYDROcodone-acetaminophen) (7.5 mg-325 mg) 1 tabs Route: PO; bb 22:37 Follow up: Response: Medication administered at discharge.; RASS: Alert and Calm (0) bb Outcome: 22:12 Discharge ordered by . pm1 22:38 Discharged to home ambulatory, with family. bb 22:38 Condition: stable 22:38 Discharge instructions given to patient, Instructed on discharge instructions, follow up and referral plans. medication usage, Demonstrated understanding of instructions, follow-up care, medications, Prescriptions given X 3. 22:38 Patient left the ED. bb Signatures: Emily Duarte mr Venus Del Castillo, RN RN bb Juan F Chase, TELEGRAPH OFFICE ROUTE AIDE TELEGRAPH OFFICE ROUTE AIDE pm1
[2021-07-09] MEDS ORDERED: HYDROCODONE/APAP 7.5/325 MG TAB ONE (22:34)
[2021-07-09 22:44] VITALS: BP 118/81; TEMP 98.8; O2SAT 98
== END 2021-07-09 22:38 | disposition home or self-care (01) ==
LOC: ER 21:26
DX: H60.91 Unspecified otitis externa, right ear (principal); Z88.0 Allergy status to penicillin
CPT/HCPCS: 99283

== ENCOUNTER 2021-11-20 23:07 | Emergency (ER) | payer BC ==
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
[2021-11-21] MEDS ORDERED: HYDROCODONE/APAP 10/325 TAB ONE (01:50)
[2021-11-21] MEDS ORDERED: IBUPROFEN 400 MG TAB ONE (01:51)
[2021-11-21 03:34] VITALS: TEMP 97.7
[2021-11-21 03:36] VITALS: BP 119/82; O2SAT 99
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
== END 2021-11-21 01:58 | disposition home or self-care (01) ==
LOC: ER 23:07
DX: S29.011A Strain of muscle and tendon of front wall of thorax, initial encounter (principal); S00.83XA Contusion of other part of head, initial encounter; S80.02XA Contusion of left knee, initial encounter; V49.9XXA Car occupant (driver) (passenger) injured in unspecified traffic accident, initial encounter; Z88.0 Allergy status to penicillin
CPT/HCPCS: 70450; 71045; 72125; 99284

== ENCOUNTER 2022-01-12 09:00 | Emergency (ER) | payer BC ==
[2022-01-12] MEDS ORDERED: IBUPROFEN 400 MG TAB ONE (09:35)
[2022-01-12] MEDS ORDERED: HYDROCODONE/APAP 10/325 TAB ONE (09:35)
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
[2022-01-12 10:00] LABS: Absolute Lymphocytes (CBC) 2.1 K/uL (0.7-4.9); Hematocrit 41.6 % (39.6-49.0); MPV 8.5 fL (7.6-11.3); RBC Red Blood Cell Count 4.51 M/uL (4.33-5.43)
--- NOTE | 2022-01-12 10:38 | EDPHYS ---
Physician Documentation [facility] Name: Kun Head Jr Age: 31 yrs Sex: Male : 1990 Arrival Date: 01/12/2022 Time: 09:02 Bed 4 Private MD: ED Physician Miguel Jiang HPI: 01/12 09:52 This 31 yrs old Male presents to ER via Ambulatory with complaints of Chest Pain - post kdr fall. 09:52 The patient or guardian reports chest pain that is located primarily in the anterior kdr chest wall, left, left lateral anterior chest. The pain does not radiate. Associated signs and symptoms: The patient has no apparent associated signs or symptoms. The chest pain is described as aching, sharp, stabbing. Duration: The patient or guardian reports multiple episodes, that are intermittent, that wax and wane, His discomfort is very much movement related. Discomfort is at the nipple line on the left anterior axillary line. Modifying factors: The symptoms are alleviated by remaining still, the symptoms are aggravated by breathing, movement, twisting torso. Severity of pain: At its worst the pain was mild just prior to arrival, in the emergency department the pain is unchanged. The patient has not experienced similar symptoms in the past. The patient has not recently seen a physician. Historical: - Allergies: 09:12 PENICILLINS; aa5 - Home Meds: 09:12 None [Active]; aa5 - PMHx: 09:12 None; aa5 - PSHx: 09:12 skin graft to right knee; aa5 - Immunization history:: Adult Immunizations unknown. - Social history:: Smoking status: Patient denies any tobacco usage or history of. ROS: 09:52 Constitutional: Negative for fever, chills, and weight loss, Eyes: Negative for injury, kdr pain, redness, and discharge, Neck: Negative for injury, pain, and swelling, Respiratory: Negative for shortness of breath, cough, wheezing, and pleuritic chest pain, Abdomen/GI: Negative for abdominal pain, nausea, vomiting, diarrhea, and constipation, Back: Negative for injury and pain, MS/Extremity: Negative for injury and deformity, Skin: Negative for injury, rash, and discoloration, Neuro: Negative for headache, weakness, numbness, tingling, and seizure activity. Psych: Negative for depression, anxiety, suicide ideation, homicidal ideation, and hallucinations, Allergy/Immunology: Negative for hives, rash, and allergies, Endocrine: Negative for neck swelling, polydipsia, polyuria, polyphagia, and marked weight changes, Hematologic/Lymphatic: Negative for swollen nodes, abnormal bleeding, and unusual bruising. 09:52 Cardiovascular: Positive for chest pain, with cough, with movement, Negative for edema, orthopnea, palpitations, paroxysmal nocturnal dyspnea. Exam: 09:51 ECG was reviewed by the Attending Physician. kdr 09:52 Constitutional: This is a well developed, well nourished patient who is awake, alert, kdr and in no acute distress. Head/Face: Normocephalic, atraumatic. Eyes: Pupils equal round and reactive to light, extra-ocular motions intact. Lids and lashes normal. Conjunctiva and sclera are non-icteric and not injected. Cornea within normal limits. Periorbital areas with no swelling, redness, or edema. Neck: Trachea midline, no thyromegaly or masses palpated, and no cervical lymphadenopathy. Supple, full range of motion without nuchal rigidity, or vertebral point tenderness. No Meningismus. Cardiovascular: Regular rate and rhythm with a normal S1 and S2. No gallops, murmurs, or rubs. Normal PMI, no JVD. No pulse deficits. Respiratory: Lungs have equal breath sounds bilaterally, clear to auscultation and percussion. No rales, rhonchi or wheezes noted. No increased work of breathing, no retractions or nasal flaring. Abdomen/GI: Soft, non-tender, with normal bowel sounds. No distension or tympany. No guarding or rebound. No evidence of tenderness throughout. Back: No spinal tenderness. No costovertebral tenderness. Full range of motion. Skin: Warm, dry with normal turgor. Normal color with no rashes, no lesions, and no evidence of cellulitis. MS/ Extremity: Pulses equal, no cyanosis. Neurovascular intact. Full, normal range of motion. Neuro: Awake and alert, GCS 15, oriented to person, place, time, and situation. Cranial nerves II-XII grossly intact. Motor strength 5/5 in all extremities. Sensory grossly intact. Cerebellar exam normal. Normal gait. Psych: Awake, alert, with orientation to person, place and time. Behavior, mood, and affect are within normal limits. 09:52 Chest/axilla: Inspection: normal, Palpation: crepitus, is not appreciated, tenderness, that is mild, of the left lateral anterior chest. Vital Signs: 09:05 BP 130 / 82; Pulse 79; Resp 16 S; Temp 97.9(TE); Pulse Ox 100% on R/A; Weight 98.43 kg aa5 (R); Height 6 ft. 0 in. (182.88 cm) (R); 09:05 Body Mass Index 29.43 (98.43 kg, 182.88 cm) aa5 MDM: 10:38 Patient medically screened. kdr 13:04 Data reviewed: vital signs, nurses notes, lab test result(s), radiologic studies. kdr Counseling: I had a detailed discussion with the patient and/or guardian regarding: the historical points, exam findings, and any diagnostic results supporting the discharge/admit diagnosis, lab results, radiology results, the need for outpatient follow up. 01/12 09:05 Order name: CBC with Diff; Complete Time: 10:31 [facility] 01/12 09:05 Order name: XRAY Chest (1 view); Complete Time: 09:50 kdr 01/12 09:09 Order name: Ribs Left XRAY; Complete Time: 09:50 kdr 01/12 09:05 Order name: EKG; Complete Time: 09:06 kdr 01/12 09:05 Order name: Cardiac monitoring; Complete Time: 09:44 kdr 01/12 09:05 Order name: EKG - Nurse/Tech; Complete Time: :44 [facility] 01/12 09:05 Order name: IV Saline Lock; Complete Time: :44 [facility] 01/12 09:05 Order name: Labs collected and sent; Complete Time: :44 kdr EC:51 Rate is 65 beats/min. Rhythm is regular, Sinus arrythmia with No ectopy. QRS [place] is kdr Normal. [place] interval is normal. QRS interval is normal. QT interval is normal. Clinical impression: NSR w/ Non-specific ST/T Changes. Administered Medications: :44 Drug: Egan (HYDROcodone-acetaminophen) 10 mg-325 mg 1 tabs {Note: RASS 0.} Route: PO; ph 10:19 Follow up: Response: No adverse reaction; RASS: Alert and Calm (0) ph 09:44 Drug: Ibuprofen 800 mg Route: PO; ph 10:19 Follow up: Response: No adverse reaction ph Disposition Summary: 01/12/22 10:38 Discharge Ordered Location: Home kdr Problem: new kdr Symptoms: have improved kdr Condition: Stable kdr Diagnosis - Chest Wall Pain kdr Followup: kdr - With: Private Physician - When: 2 - 3 days - Reason: If symptoms return, Further diagnostic work-up, Recheck today's complaints, Continuance of care, Re-evaluation by your physician Discharge Instructions: - Discharge Summary Sheet kdr - Chest Wall Pain, [id number] kdr - Contusion, [id number] kdr Forms: - Medication Reconciliation Form kdr - Thank You Letter kdr - Work release form [email or web address] Prescriptions: - Ibuprofen 600 mg Oral Tablet - take 1 tablet by ORAL route every 6 hours As needed take with food; 12 tablet; kdr Refills: 0, Product Selection Permitted - Tramadol 50 mg Oral Tablet - take 1 tablet by ORAL route every 8 hours as needed; 12 tablet; Refills: 0, kdr Product Selection Permitted - Cyclobenzaprine 10 mg Oral Tablet - take 1 tablet by ORAL route every 8 hours As needed; 12 tablet; Refills: 0, kdr Product Selection Permitted Signatures: Dispatcher [employer] Miguel Beltran MD MD kdr Blanquita Shah RN RN aa5 Dia Araujo RN RN ph Corrections: (The following items were deleted from the chart) 09: 09:12 PMHx: skin graft right knee; aa5 aa5 09:13 09:12 PSHx: knee surgery; aa5 aa5
--- NOTE | 2022-01-12 10:38 | ER ---
Nurse's Notes [facility] Name: Kun Head Jr Age: 31 yrs Sex: Male : 1990 Arrival Date: 01/12/2022 Time: 09:02 Bed 4 Private MD: Diagnosis: Chest Wall Pain Presentation: 01/12 09:05 Chief complaint: Patient states: "I was climbing on a boom for a luu at work and I aa5 lost my footing and fell about 5 foot". Pt c/o pain to left lateral aspect of chest. Pt reports fall occurred on Sunday01/09/22. 09:05 Coronavirus screen: At this time, the client does not indicate any symptoms associated aa5 with coronavirus-19. Ebola Screen: No symptoms or risks identified at this time. Initial Sepsis Screen: Does the patient meet any 2 criteria? No. Patient's initial sepsis screen is negative. Does the patient have a suspected source of infection? No. Patient's initial sepsis screen is negative. Risk Assessment: Do you want to hurt yourself or someone else? Patient reports no desire to harm self or others. Onset of symptoms was December 2021. 09:05 Acuity: DEBO 4 aa5 09:05 Method Of Arrival: Ambulatory aa5 Historical: - Allergies: 09:12 PENICILLINS; aa5 - Home Meds: 09:12 None [Active]; aa5 - PMHx: 09:12 None; aa5 - PSHx: 09:12 skin graft to right knee; aa5 - Immunization history:: Adult Immunizations unknown. - Social history:: Smoking status: Patient denies any tobacco usage or history of. Screenin:23 Abuse screen: Denies threats or abuse. Denies injuries from another. Nutritional ph screening: No deficits noted. Tuberculosis screening: No symptoms or risk factors identified. Fall Risk None identified. Assessment: 09:44 General: Appears in no apparent distress. comfortable, well groomed, Behavior is calm, ph cooperative, appropriate for age. Pain: Complains of pain in left lateral anterior chest and left lateral posterior chest. Neuro: Level of Consciousness is awake, alert, obeys commands, Oriented to person, place, time, situation. Cardiovascular: Capillary refill < 3 seconds in bilateral fingers Patient's skin is warm and dry. Respiratory: Airway is patent Respiratory effort is even, unlabored, Respiratory pattern is regular, symmetrical, Denies shortness of breath. Derm: Skin is intact, is healthy with good turgor, Skin is pink, warm \\T\\ dry. 10:19 Reassessment: Patient appears in no apparent distress at this time. Patient and/or ph family updated on plan of care and expected duration. Pain level reassessed. Patient is alert, oriented x 3, equal unlabored respirations, skin warm/dry/pink. Vital Signs: 09:05 BP 130 / 82; Pulse 79; Resp 16 S; Temp 97.9(TE); Pulse Ox 100% on R/A; Weight 98.43 kg aa5 (R); Height 6 ft. 0 in. (182.88 cm) (R); 09:05 Body Mass Index 29.43 (98.43 kg, 182.88 cm) aa5 ED Course: 09:02 Patient arrived in ED. rg4 09:04 Miguel Jiang MD is Attending Physician. kdr 09:09 Arm band placed on Patient placed in an exam room, on a stretcher. aa5 09:12 Triage completed. aa5 09:19 Iris Huffman, RN is Primary Nurse. jh6 09:23 Patient has correct armband on for positive identification. Bed in low position. Call ph light in reach. Side rails up X 1. Door closed. Noise minimized. 09:23 Patient maintains SpO2 saturation greater than 95% on room air. ph 09:36 XRAY Chest (1 view) In Process Unspecified. EDMS 09:36 Ribs Left XRAY In Process Unspecified. EDMS 09:45 Initial lab(s) drawn, by me, sent to lab. Missed attempt(s): 20 gauge in right ph antecubital area. Bleeding controlled, band aid applied, catheter tip intact. 09:46 Pulse ox on. NIBP on. ph 10:19 No provider procedures requiring assistance completed. Patient did not have IV access ph during this emergency room visit. Administered Medications: 09:44 Drug: Brent (HYDROcodone-acetaminophen) 10 mg-325 mg 1 tabs {Note: RASS 0.} Route: PO; ph 10:19 Follow up: Response: No adverse reaction; RASS: Alert and Calm (0) ph 09:44 Drug: Ibuprofen 800 mg Route: PO; ph 10:19 Follow up: Response: No adverse reaction ph Medication: 09:46 VIS not applicable for this client. ph Outcome: 10:38 Discharge ordered by . kdr 11:02 Patient left the ED. [email or web address] Signatures: Dispatcher [employer] EDMiguel Haas MD MD kdr Calderon, Audri RN RN aa5 Dia Araujo RN RN Lori Gonsalez Kandis kj1 Iris Huffman RN RN jh6 Corrections: (The following items were deleted from the chart) 09:13 09:12 PMHx: skin graft right knee; aa5 aa5 09:13 09:12 PSHx: knee surgery; aa5 aa5
[2022-01-12 11:17] VITALS: BP 130/82; TEMP 97.9; O2SAT 100
--- NOTE | 2022-01-14 17:35 | EKG ---
Test Date: 2022-01-12 Test Time: 09:36:51 Cloth Doffer: GEOVANNY MEASUREMENT RESULTS: Intervals: Rate: 62 RI: 152 QRSD: 90 QT: 382 QTc: 387 [place]: P: 58 RI: 152 QRS: 45 T: 42 INTERPRETIVE STATEMENTS: Normal sinus rhythm Cannot rule out Anterior infarct, age undetermined Abnormal ECG Compared to ECG 07/28/2019 06:56:16 Myocardial infarct finding now present Electronically Signed On 01-14-22 17:30:28 CDT by Mariusz Hernandez
--- NOTE | 2022-01-14 17:35 | EKG ---
Test Date: 2022-01-12 Test Time: 09:37:40 Enlisted Advisor: GEOVANNY MEASUREMENT RESULTS: Intervals: Rate: 65 NM: 150 QRSD: 88 QT: 388 QTc: 403 [place]: P: 60 NM: 150 QRS: 52 T: 38 INTERPRETIVE STATEMENTS: Normal sinus rhythm with sinus arrhythmia Normal ECG Compared to ECG 01/12/2022 09:36:51 Myocardial infarct finding no longer present Electronically Signed On 01-14-22 17:30:25 CDT by Mariusz Hernandez
== END 2022-01-12 11:02 | disposition home or self-care (01) ==
LOC: ER 09:00
DX: R07.89 Other chest pain (principal); Z88.0 Allergy status to penicillin
CPT/HCPCS: 36415; 71045; 85025; 93005; 99284